=== PATIENT | female | born 1970 | race Caucasian/White ===

== ENCOUNTER 2017-10-01 13:01 | Inpatient (IN) | payer SELFPAY ==
[~2017-10-01] VITALS: Ht 165.1 cm; Wt 80.0 kg
[2017-10-01] VITALS (12 sets, daily range): BP systolic 88–189; BP diastolic 63–111; PULSE 111–148; RESP 14–28; TEMP 93.4–97.2; O2SAT 86–100
[~2017-10-01 13:01] MED LIST: SULF200S24 PO; ZOLO50TA PO; [UNRECOGNIZED DRUG - CODE] PO
[2017-10-01] MEDS ORDERED: NOREPINEPHRINE 4 MG/4 ML AMP ONE (13:06)
[2017-10-01] MEDS ORDERED: SODIUM CHLOR 0.9% 1000 ML INJ 1,000 ML IV SCH (13:12)
[2017-10-01] MEDS ORDERED: SODIUM CHLORIDE 0.9% FLUSH 10 ML FLUSH IV FLUSH PRN (13:15)
--- NOTE | 2017-10-01 13:15 | PD ---
HPI Chief Complaint: Code Blue Time Seen by Provider: 13:10 Travel History International Travel<30 days: No Contact w/Intl Traveler<30days: No History of Present Illness HPI Patient is a 47 year old female last seen normal at 0930 this morning. Apparently came home from the shift leader, had a beer and went to bed. Sissy awoke some time after that and found her unresponsive on the floor. patient has history of gastric bipass and apparently is a daily drinker. According to iselaoj had no complaints of CP/SOB/Abdominal pain/Head injury prior to code. Approximately 12 minutes of bistander CPR was initiated. Patient had ROSC after resucitation by EMS. Patient then re-coded and was given several rounds of epi, bicarb, narcan, calcium chloride. On arrival to ER she had palpable femoral pulse for EMS. While rolling from ambulance to room E60 she again lost pulses. Patient has been in PEA arrest, no VT/VF or asystole. PFSH Past Medical History Blood Disorders: Yes (FACTOR V) Cancer: No Cardiovascular Problems: No Diabetes: No Gastrointestinal Disorders: Yes GERD: Yes Glaucoma: No Hepatitis: No Hiatal Hernia: No Hypertension: No Immune Disorder: No Musculoskeletal: Yes Neurologic: No Respiratory: Yes ( SLEEP APNEA ) Thyroid Disease: No Past Surgical History Cardiac Surgery: No Ear Surgery: No Endocrine Surgery: No Eye Surgery: No Gynecologic Surgery: Yes (LAPAROSCOPY TUBAL LIGATION- ABLATION) Oral Surgery: No Pacemaker: No Thoracic Surgery: No Other Surgery: Yes Social History Alcohol Use: Yes (SOCIALLY) Tobacco Use: No Allergies-Medications (Allergen,Severity, Reaction): Coded Allergies: No Known Allergies (Verified Allergy, Unknown, 10/01/17) Reported Meds & Prescriptions Reported Meds & Active Scripts Active Active Prescriptions or Reported Medications Unobtainable Review of Systems ROS Limitations: Altered Mental Status Physical Exam Exam Limitations: Altered Mental Status Narrative GENERAL: WD/WN in cardiac arrest. BVM. SKIN: Cool and dry. HEAD: Atraumatic. Normocephalic. EYES: Fixed and dilated. No scleral icterus. No injection or drainage. ENT: No nasal bleeding or discharge. Mucous membranes pink and moist. NECK: Trachea midline. No JVD. CARDIOVASCULAR: PEA arrest. RESPIRATORY: Apneic except BVM. GASTROINTESTINAL: Abdomen soft, non-tender, nondistended. Hepatic and splenic margins not palpable. MUSCULOSKELETAL: Extremities without clubbing, cyanosis, or edema. No obvious deformities. NEUROLOGICAL: GCS 3 Data Data Last Documented VS Vital Signs Date Time Temp Pulse Resp B/P (MAP) Pulse Ox O2 Delivery O2 Flow Rate FiO2 10/01/17 14:45 117 18 100 Ventilator 100 10/01/17 13:04 118/76 (90) Orders Orders Norepinephrine Inj (Levophed Inj) (10/01/17 13:06) Ammonia (10/01/17 13:12) Complete Blood Count With Diff (10/01/17 13:12) Comprehensive Metabolic Panel (10/01/17 13:12) Creatine Kinase (Cpk) (10/01/17 13:12) Prothrombin Time / Inr (Pt) (10/01/17 13:12) Act Partial Throm Time (Ptt) (10/01/17 13:12) Troponin I (10/01/17 13:12) Thyroid Stimulating Hormone (10/01/17 13:12) Urinalysis - C+S If Indicated (10/01/17 13:12) Lactic Acid Sepsis Protocol (10/01/17 13:12) Blood Culture (10/01/17 13:12) Chest, Single Ap (10/01/17 13:12) Ct Brain W/O Iv Contrast(Rout) (10/01/17 13:12) Blood Glucose (10/01/17 13:12) Ecg Monitoring (10/01/17 13:12) Iv Access Insert/Monitor (10/01/17 13:12) Oximetry (10/01/17 13:12) Sodium Chloride 0.9% Flush (Ns Flush) (10/01/17 13:15) Sodium Chlor 0.9% 1000 Ml Inj (Ns 1000 M (10/01/17 13:12) Drug Screen, Random Urine (10/01/17 13:12) Alcohol (Ethanol) (10/01/17 13:12) Ct Cerv Spine W/O Contrast (10/01/17 ) Norepinephrine-Dextrose Drip (Levophed-D (10/01/17 13:30) Terbutaline Inj (Brethine Inj) (10/01/17 13:30) Arterial Blood Gas (Abg) (10/01/17 ) Norepinephrine-Dextrose Drip (Levophed-D (10/01/17 14:00) Ct Pulmonary Angiogram (10/01/17 ) Admit Order (Ed Use Only) (10/01/17 ) Labs Laboratory Tests Test 10/01/17 13:28 10/01/17 13:30 10/01/17 14:20 Blood Gas Puncture Site RT RADIAL Blood Gas Patient Temperature 98.6 Blood Gas HCO3 12 mmol/L Blood Gas Base Excess -18.8 mmol/L Blood Gas Oxygen Saturation 98 % Arterial Blood pH 6.87 Arterial Blood Partial Pressure CO2 70 mmHg Arterial Blood Partial Pressure O2 307 mmHG Arterial Blood Oxygen Content 19.2 Vol % Arterial Blood Carboxyhemoglobin 0.0 % Arterial Blood Methemoglobin 0.9 % Blood Gas Hemoglobin 13.5 G/DL Oxygen Delivery Device VENTILATOR Blood Gas Ventilator Setting Blood Gas Inspired Oxygen 100 % White Blood Count 20.2 TH/MM3 Red Blood Count 4.30 MIL/MM3 Hemoglobin 14.3 GM/DL Hematocrit 45.3 % Mean Corpuscular Volume 105.3 FL Mean Corpuscular Hemoglobin 33.3 PG Mean Corpuscular Hemoglobin Concent 31.6 % Red Cell Distribution Width 13.9 % Platelet Count 196 TH/MM3 Mean Platelet Volume 9.1 FL Neutrophils (%) (Auto) 44.7 % Lymphocytes (%) (Auto) 47.8 % Monocytes (%) (Auto) 5.5 % Eosinophils (%) (Auto) 1.2 % Basophils (%) (Auto) 0.8 % Neutrophils # (Auto) 9.0 TH/MM3 Lymphocytes # (Auto) 9.6 TH/MM3 Monocytes # (Auto) 1.1 TH/MM3 Eosinophils # (Auto) 0.3 TH/MM3 Basophils # (Auto) 0.2 TH/MM3 CBC Comment AUTO DIFF Differential Total Cells Counted 100 Neutrophils % (Manual) 31 % Band Neutrophils % 16 % Lymphocytes % 43 % Monocytes % 1 % Neutrophils # (Manual) 11.3 TH/MM3 Metamyelocytes 5 % Myelocytes 2 % Promyelocytes 2 % Differential Comment FINAL DIFF MANUAL Platelet Estimate NORMAL Platelet Morphology Comment NORMAL Prothrombin Time 10.7 SEC Prothromb Time International Ratio 1.1 RATIO Activated Partial Thromboplast Time 31.9 SEC Blood Urea Nitrogen 12 MG/DL Creatinine 1.55 MG/DL Random Glucose 287 MG/DL Total Protein 6.5 GM/DL Albumin 3.0 GM/DL Calcium Level 11.4 MG/DL Alkaline Phosphatase 101 U/L Aspartate Amino Transf (AST/SGOT) 1972 U/L Alanine Aminotransferase (ALT/SGPT) 1341 U/L Total Bilirubin 0.3 MG/DL Sodium Level 144 MEQ/L Potassium Level 4.9 MEQ/L Chloride Level 99 MEQ/L Carbon Dioxide Level 19.9 MEQ/L Anion Gap 25 MEQ/L Estimat Glomerular Filtration Rate 36 ML/MIN Lactic Acid Level 14.5 mmol/L Ammonia 259 MCMOL/L Total Creatine Kinase 174 U/L Troponin I 0.07 NG/ML Thyroid Stimulating Hormone 3rd Gen 22.900 uIU/ML Ethyl Alcohol Level 125 MG/DL Urine Color YELLOW Urine Turbidity CLOUDY Urine pH 6.0 Urine Specific [place] 1.006 Urine Protein 100 mg/dL Urine Glucose (UA) 150 mg/dL Urine Ketones NEG mg/dL Urine Occult Blood MOD Urine Nitrite NEG Urine Bilirubin NEG Urine Urobilinogen LESS THAN 2 mg/dL Urine Leukocyte Esterase NEG Urine RBC 7 /hpf Urine WBC 8 /hpf Urine Squamous Epithelial Cells <1 /hpf Urine Amorphous Sediment MANY Urine Bacteria FEW /hpf Urine Hyaline Casts 3 /lpf Urine Mucus FEW /lpf Microscopic Urinalysis Comment CATH-CULTURE IND Urine Opiates Screen POS Urine Barbiturates Screen NEG Urine Amphetamines Screen NEG Urine Benzodiazepines Screen NEG Urine Cocaine Screen NEG Urine Cannabinoids Screen NEG MDM Medical Decision Making Medical Screen Exam Complete: Yes Emergency Medical Condition: Yes Differential Diagnosis Cardiac arrest, AMI, PE, Head injury, Electrolyte abnormality, Dehydration, Hypovolemia, pneumothorax, Narrative Course CPR started in ER and was given a round of epi by Right tib IO access. IV access obtained by nursing and fluids started. Patient had ROSC after 1 round of epi. Post code resucitation started. Patient intubated by me. OG showed no blood. IO removed. Levophed started. Patient becoming hypotensive again, HR in 80's, 1/2 amp epi given camilo-arrest, good response in BP up to 160 and HR up to 120. Levophed titrated. ABG showing Metabolic and Respiratory acidosis. Bicarb given, respiratory rate increased. Art line and femoral line started. Patient BP improving after bicarb. Cause of arrest yet unknown. No reported emesis/hematemsis visible on seen or history of. No reported history of trauma. CT PE ordered as well as CT head and Cerv spine. Electrolytes pending. WBC elevated. BC's drawn Will start vanc and zosyn. Last 24 hours Impressions Chest X-Ray 10/01/17 1312 Signed Impressions: CONCLUSION: Adequate placement of endotracheal tube. At 1600 report being called to ICU by nursing. Patient remains in critical condition, blood pressure is improving. Did not require second pressor. Cause of PEA arrest remains unknown. Labs show multiorgan failure. TSH elevated, lactic acid 14.5, AST 1972, ALT 1341. Ammonia 259. Electrolytes fairly unremarkable except calcium elevated. Troponon 0.07. Myxedema coma is posibility. But per fiance patient had no symptoms prior to code. Core temperature was low at 92 good support myxedema, could be from prolonged downtime. Critical Care Narrative Aggregate critical care time was 65 minutes. Time to perform other separately billable procedures was not included in the critical care time. My time did not include minutes spent treating any other patients simultaneously or on activities that did not directly contribute to the patient's treatment. The services I provided to this patient were to treat and/or prevent clinically significant deterioration that could result in: , disability, organ failure I provided critical care services requiring my management, as noted below: Chart data review, documentation time, medication orders and management, vital sign assessments/reviewing monitor data, ordering and reviewing lab tests, ordering and interpreting/reviewing x-rays and diagnostic studies, care of the patient and discussion of the patient with the admitting physicians. Procedures Procedure Narrative INTUBATION: The patient was put in optimal position for the procedure. Crush airway did not require premedication her R side. MAC 4 blade DL. the patient was intubated with a 7-5 cuffed endotracheal tube. Tube placement was confirmed by visualization of the tube and balloon passing through the cords, capnometry and subsequent chest x-ray. Breath sounds were equal and well aerated bilaterally postintubation. No breath sounds over stomach. Patient tolerated procedure well. CENTRAL VENOUS LINE: The site was prepped with chlorhexadine and sterilely draped. Maximum sterile barrier was used the deep vein was cannulated using normal Seldinger technique. A 7 [place] triple lumen central line was placed in the right femoral site and secured with simple interrupted suture. The site was sterilely dressed Biopatch and Tegaderm. The patient tolerated the procedure well. CENTRAL ARTERIAL LINE: The site was prepped with chlorhexidine and sterilely draped. It was infiltrated with 1% lidocaine plain. The deep vein was cannulated using normal Seldinger technique. A singe lumen 20guage arterial was placed in the right femoral site and secured with simple interrupted suture. The site was sterilely dressed. The patient tolerated the procedure well. Diagnosis Primary Impression: Cardiac arrest Admitting Information Admitting Physician Requests: Admit Scripts Unable to Obtain Active Prescriptions or Reported Meds Condition: Critical Morales Glez MD Oct 01, 2017 13:15
[2017-10-01] MEDS ORDERED: TERBUTALINE INJ 1 MG/ML AMP SQ PRN (13:30)
[2017-10-01] MEDS ORDERED: NOREPINEPHRINE-DEXTROSE DRIP 250 ML IV PRN (13:30)
--- NOTE | 2017-10-01 13:48 | RADRPT ---
EXAM DATE: 10/01/2017 1:33 PM EDT AGE/SEX: 47 years / Female INDICATIONS: Post intubation. CLINICAL DATA: This is the patient's initial encounter. Patient reports that signs and symptoms have been present for 1 day and indicates a pain score of Nonresponsive. MEDICAL/SURGICAL HISTORY: Non-responsive. Non-responsive. COMPARISON: No prior exams available for comparison. FINDINGS: A single AP view of the chest demonstrates the lungs to be symmetrically aerated without evidence of mass, infiltrate or effusion. Endotracheal tube 3 cm above the xiomara. Nasogastric tube with tip in s tomach The cardiomediastinal contours are unremarkable. Osseous structures are intact. CONCLUSION: Adequate placement of endotracheal tube. Electronically signed by: Jamil Matson MD 10/01/2017 1:46 PM EDT
[2017-10-01 14:15] LABS: BASOPHIL # 0.2 TH/MM3 (0-0.2); BASOPHIL % 0.8 % (0.0-2.0); EOSINOPHIL # 0.3 TH/MM3 (0-0.4); EOSINOPHIL % 1.2 % (0.0-4.0); HEMATOCRIT 45.3 % (35.0-46.0); HEMOGLOBIN 14.3 GM/DL (11.6-15.3); LYMPH % 47.8 % (9.0-44.0); LYMPHOCYTE # 9.6 TH/MM3 (1.0-4.8); MEAN CELL VOLUME 105.3 FL (80.0-100.0); MEAN CORPUSCULAR HEMOGLOBIN 33.3 PG (27.0-34.0); MEAN CORPUSCULAR HGB CONC 31.6 % (32.0-36.0); MEAN PLATELET VOLUME 9.1 FL (7.0-11.0); MONO % 5.5 % (0.0-8.0); MONOCYTE # 1.1 TH/MM3 (0-0.9); NEUT % 44.7 % (16.0-70.0); PLATELET COUNT 196 TH/MM3 (150-450); RED CELL DISTRIBUTION WIDTH 13.9 % (11.6-17.2); WHITE BLOOD COUNT 20.2 TH/MM3 (4.0-11.0)
[2017-10-01 14:28] LABS: INTERNATIONAL NORMALIZED RATIO 1.1 RATIO; PROTHROMBIN TIME - PATIENT 10.7 SEC (9.8-11.6)
[2017-10-01 14:46] LABS: BANDS 16 % (0-6); LYMPHOCYTES 43 % (9-44); METAMYELOCYTES 5 % (0-1); MONOCYTES 1 % (0-8); MYELOCYTES 2 % (0-0); NEUTROPHIL # MANUAL DIFF 11.3 TH/MM3 (1.8-7.7); POLYS (SEG NEUTROPHILS) 31 % (16-70); PROMYELOCYTES 2 % (0-0)
[2017-10-01] MEDS: NOREPINEPHRINE 4 MG/D5W 250 ML IV PRN ×2 (15:04→18:36)
[2017-10-01 15:11] LABS: LACTIC ACID SEPSIS PROTOCOL 14.5 mmol/L (0.4-2.0)
[2017-10-01] MEDS ORDERED: SODIUM BICARBONATE 8.4% INJ 150 MEQ in DEXTROSE 5% IN WATE 1000ML INJ 1,000 ML IV SCH ×2 (15:15)
[2017-10-01] MEDS ORDERED: VANCOMYCIN INJ 1,000 MG in SODIUM CHLOR 0.9% 250 ML INJ 250 ML IV ONE (15:15)
[2017-10-01] MEDS ORDERED: SODIUM CHLOR 0.9% 1000 ML INJ 1,000 ML IV ONE ×3 (15:15→19:15)
[2017-10-01] MEDS ORDERED: PIPERACIL-TAZO 4.5 GM PREMIX 100 ML IV ONE (15:15)
[2017-10-01] MEDS ORDERED: CHLORHEXIDINE GLUCONATE 2 % 1 PACK (2 CLOTHS) TOP PRN (15:15)
[2017-10-01] MEDS ORDERED: SODIUM BICARBONATE 8.4% INJ 50 MEQ/50 ML SYR IV PUSH ONE ×2 (15:15→16:45)
[2017-10-01] MEDS ORDERED: NURSING INFORMATION XX SCH (15:15)
[2017-10-01] MEDS ORDERED: Vancomycin Consult Pharmacy 1 EA OTHER SCH (15:30)
[2017-10-01 15:39] LABS: ALKALINE PHOSPHATASE 101 U/L (45-117); ALT (GPT) 1341 U/L (10-53); AST (GOT) 1972 U/L (15-37); BICARBONATE 19.9 MEQ/L (21.0-32.0); BLOOD UREA NITROGEN 12 MG/DL (7-18); CALCIUM 11.4 MG/DL (8.5-10.1); CHLORIDE 99 MEQ/L (98-107); CREATININE 1.55 MG/DL (0.50-1.00); GLOMERULAR FILTRATION RATE 36 ML/MIN (>89); GLUCOSE,RANDOM 287 MG/DL (74-106); SODIUM (NA) 144 MEQ/L (136-145); TOTAL BILIRUBIN ADULT 0.3 MG/DL (0.2-1.0); TOTAL PROTEIN 6.5 GM/DL (6.4-8.2); TROPONIN I 0.07 NG/ML (0.02-0.05)
--- NOTE | 2017-10-01 15:39 | HHI.HP ---
HPI Service Critical Care Medicine Primary Care Physician Unknown Admission Diagnosis Cardiac Arrest Diagnosis: Chief Complaint: Post cardiac arrest Travel History International Travel<30 Days: No (unable to obtain) Contact w/Intl Traveler <30 Da: No (unable to obtain) Traveled to Known Affected Are: No (unable to obtain) History of Present Illness 47-year-old lady with history of gastric bypass, per chart alcoholic, drinking daily, now brought in post cardiac arrest. History is limited and it is obtained from ED physician since there is no family present at bedside. Patient was found unresponsive on the floor by her fianc sometime after 9:30 this morning. EMS was called and patient underwent approximately 12 minutes of bystander CPR. On EMS arrival patient was in PEA. Patient had ROSC but she arrested another 2 times on route to the hospital. Per documentation she she was given Narcan, epinephrine 5, bicarb 1 and calcium chloride. On ED arrival patient had a pulse however she lost the pulse briefly after arrival. She underwent another round of CPR in ED for again PEA arrest for which he received 1 epinephrine. An emergent central line and arterial line was placed by ED physician and patient was given 1 L saline bolus, 1 bicarb, and she was started on norepinephrine infusion. Was emergently intubated and placed on mechanical ventilation. [facility] is now consulted for ICU admission. Of note, patient did not receive any sedation since ED arrival. Patient was seen immediately in ER, she is intubated, unresponsive. Norepinephrine is at 30 mcg/ min. Review of Systems ROS Limitations: Intubated, Unresponsive Past Family Social History Allergies: Coded Allergies: No Known Allergies (Verified Allergy, Unknown, 10/01/17) Past Medical History Unobtainable, due to patient's condition Past Surgical History Unobtainable due to patient's condition. Per report history of gastric bypass Reported Medications Reported Meds & Active Scripts Active Active Prescriptions or Reported Medications Unobtainable Active Ordered Medications Current Medications Medications (Trade) Dose Ordered Sig/Fausto Route Start Time Stop Time Status Last Admin (NS Flush) 2 ml UNSCH PRN IV FLUSH 10/01/17 13:15 (Brethine Inj) 1 mg UNSCH PRN SQ 10/01/17 13:30 Norepinephrine Bitartrate 250 ml @ 7.5 mls/hr TITRATE PRN IV 10/01/17 14:00 10/01/17 15:04 Vancomycin HCl 1000 mg/Sodium Chloride 250 ml @ 250 mls/hr ONCE ONCE IV 10/01/17 15:15 10/01/17 16:14 Piperacillin Sod/ Tazobactam Sod 100 ml @ 200 mls/hr ONCE ONCE IV 10/01/17 15:15 10/01/17 15:44 Sodium Bicarbonate 150 meq/Dextrose 1,150 ml @ 100 mls/hr [id number] IV 10/01/17 15:15 Sodium Chloride 1,000 ml @ 999 mls/hr BOLUS ONCE IV 10/01/17 15:15 10/01/17 16:15 10/01/17 15:24 (Protonix Inj) 40 mg DAILY IV PUSH 10/02/17 09:00 (Tears Naturale Opth Soln) 1 drop TID EACH EYE 10/01/17 18:00 (Duoneb Neb) 1 ampule Q6HR NEB INH 10/01/17 16:00 (Lovenox Inj) 40 mg Q24H SQ 10/02/17 18:00 ([facility] [place] [facility]) 1 [id number] XX 10/01/17 15:15 (Chlorhexidine 2% Cloth) 3 pack Taper DAILY@04 TOP 10/02/17 04:00 09/28/18 03:59 (Chlorhexidine 2% Cloth) 3 pack UNSCH PRN TOP 10/01/17 15:15 (Peridex 0.12% Liq) 15 ml BID@08,20 MT 10/01/17 20:00 Family History Unobtainable, patient is intubated Social History Unobtainable, patient is intubated. Per ED chart patient was drinking daily Physical Exam Vital Signs Vital Signs Date Time Temp Pulse Resp B/P (MAP) Pulse Ox O2 Delivery O2 Flow Rate FiO2 10/01/17 15:15 93.4 128 27 160/98 (118) 100 Ventilator 40 10/01/17 15:10 100 10/01/17 15:04 123 142/85 10/01/17 14:45 117 18 100 Ventilator 100 10/01/17 13:15 98 100 10/01/17 13:04 111 14 118/76 (90) 86 Physical Exam General: Middle-aged lady, obese, unresponsive, intubated, ill-appearing HEENT: Pupils equal, dilated, not reactive, sclerae anicteric, neck supple, no nuchal rigidity, neck veins not distended, no carotid bruit, orally intubated, dried gastric content around the mouth CV: Regular S1, S2, no murmurs Chest: Coarse breath sounds b/l, good air entry, no wheezes Abdomen: Soft, non-tender, non-distended, BS present, no hepatomegaly, no splenomegaly Skin: No rashes, no cyanosis Extremities: Tepid, no edema, + peripheral pulses, no clubbing, right femoral central and arterial lines Neuro: Intubated, on no sedation, pupils dilated and not reactive, no corneal, no cough, no gag, does not over breathe the ventilator, does not withdraw to painful stimuli Laboratory Laboratory Tests Test 10/01/17 13:28 10/01/17 13:30 10/01/17 14:20 Blood Gas Puncture Site RT RADIAL Blood Gas Patient Temperature 98.6 Blood Gas HCO3 12 Blood Gas Base Excess -18.8 Blood Gas Oxygen Saturation 98 Arterial Blood pH 6.87 Arterial Blood Partial Pressure CO2 70 Arterial Blood Partial Pressure O2 307 Arterial Blood Oxygen Content 19.2 Arterial Blood Carboxyhemoglobin 0.0 Arterial Blood Methemoglobin 0.9 Blood Gas Hemoglobin 13.5 Oxygen Delivery Device VENTILATOR Blood Gas Ventilator Setting Blood Gas Inspired Oxygen 100 White Blood Count 20.2 Red Blood Count 4.30 Hemoglobin 14.3 Hematocrit 45.3 Mean Corpuscular Volume 105.3 Mean Corpuscular Hemoglobin 33.3 Mean Corpuscular Hemoglobin Concent 31.6 Red Cell Distribution Width 13.9 Platelet Count 196 Mean Platelet Volume 9.1 Neutrophils (%) (Auto) 44.7 Lymphocytes (%) (Auto) 47.8 Monocytes (%) (Auto) 5.5 Eosinophils (%) (Auto) 1.2 Basophils (%) (Auto) 0.8 Neutrophils # (Auto) 9.0 Lymphocytes # (Auto) 9.6 Monocytes # (Auto) 1.1 Eosinophils # (Auto) 0.3 Basophils # (Auto) 0.2 CBC Comment AUTO DIFF Differential Total Cells Counted 100 Neutrophils % (Manual) 31 Band Neutrophils % 16 Lymphocytes % 43 Monocytes % 1 Neutrophils # (Manual) 11.3 Metamyelocytes 5 Myelocytes 2 Promyelocytes 2 Differential Comment FINAL DIFF MANUAL Platelet Estimate NORMAL Platelet Morphology Comment NORMAL Prothrombin Time 10.7 Prothromb Time International Ratio 1.1 Activated Partial Thromboplast Time 31.9 Lactic Acid Level 14.5 Ammonia 259 Date/Time Source Procedure Growth Status 10/01/17 13:30 Blood Peripheral Aerobic Blood Culture Pending Received 10/01/17 13:30 Blood Peripheral Anaerobic Blood Culture Pending Received Result Diagram: 10/01/17 1330 Imaging Last Impressions Chest X-Ray 10/01/17 1312 Signed Impressions: CONCLUSION: Adequate placement of endotracheal tube. Caprini VTE Risk Assessment Caprini VTE Risk Assessment: No/Low Risk (score <= 1) Caprini Risk Assessment Model Point Value = 1 Point Value = 2 Point Value = 3 Point Value = 5 Age 41-60 Minor surgery BMI > 25 kg/m2 Swollen legs Varicose veins or History of unexplained or recurrent spontaneous Oral contraceptives or hormone replacement Sepsis (< 1 month) Serious lung disease, including pneumonia (< 1 month) Abnormal pulmonary function Acute myocardial infarction Congestive heart failure (< 1 month) History of inflammatory bowel disease Medical patient at bed rest Age 61-74 Arthroscopic surgery Major open surgery (> 45 min) Laparoscopic surgery (> 45 min) Malignancy Confined to bed (> 72 hours) Immobilizing plaster cast Central venous access Age >= 75 History of VTE Family history of VTE Factor V Leiden Prothrombin [id number] Lupus anticoagulant Anticardiolipin antibodies Elevated serum homocysteine Heparin-induced thrombocytopenia Other congenital or acquired thrombophilia Stroke (< 1 month) Elective arthroplasty Hip, pelvis, or leg fracture Acute spinal cord injury (< 1 month) Prophylaxis Regimen Total Risk Factor Score Risk Level Prophylaxis Regimen 0-1 Low Early ambulation 2 Moderate Order ONE of the following: *Sequential Compression Device (SCD) *Heparin 5000 units SQ BID 3-4 Higher Order ONE of the following medications: *Heparin 5000 units SQ TID *Enoxaparin/Lovenox 40 mg SQ daily (WT < 150 kg, CrCl > 30 mL/min) *Enoxaparin/Lovenox 30 mg SQ daily (WT < 150 kg, CrCl > 10-29 mL/min) *Enoxaparin/Lovenox 30 mg SQ BID (WT < 150 kg, CrCl > 30 mL/min) AND/OR *Sequential Compression Device (SCD) 5 or more Highest Order ONE of the following medications: *Heparin 5000 units SQ TID (Preferred with Epidurals) *Enoxaparin/Lovenox 40 mg SQ daily (WT < 150 kg, CrCl > 30 mL/min) *Enoxaparin/Lovenox 30 mg SQ daily (WT < 150 kg, CrCl > 10-29 mL/min) *Enoxaparin/Lovenox 30 mg SQ BID (WT < 150 kg, CrCl > 30 mL/min) AND *Sequential Compression Device (SCD) Assessment and Plan Assessment and Plan 1. Cardiac arrest 4 -PEA, etiology is unclear so far 2. Acute hypoxic and hypercapnic respiratory failure 3. Acute encephalopathy with concern for brain anoxia 4. Severe metabolic and respiratory acidosis 5. Circulatory shock 6. Likely aspiration pneumonia 7. Severe lactic acidosis 8. Liver failure 9. IDA 10. Elevated TSH 11. Hyperammonemia 1. Admit to ICU 2. Stat CT head. If no evidence of bleeding we will initiate hypothermia protocol 3. Continue mechanical ventilation with PRVC, 500/24/40%, PEEP of 5. Patient is synchronized with the vent, no auto PEEP, PIP is 24 4. Repeat ABG at 4 PM 5. Another dose of slow bicarb push followed by bicarb drip at 100 mL's per hour 6. Echocardiogram and serial cardiac enzymes 7. Continue norepinephrine to keep map above 65 8. Send blood cultures, sputum culture, urine culture 9. Start empiric antibiotic with vancomycin and Zosyn 10. GI prophylaxis with pantoprazole 11. DVT prophylaxis with Lovenox 12. Repeat ammonia 13. Send lactic acid 14. Urine drug screen is pending. Send acetaminophen, salicylate and ethanol level 15. Nephrology consult for CRRT 16. Check Free T3 and T4 I spent 54 minutes of critical care time, excluding procedures, managing life- threatening acidosis, pressors, ventilator, fluids, antibiotics, reviewing data and ordering investigations, discussing with nursing staff. No family present at bedside. Addendum: Patient underwent CT head. I discussed with the radiologist the scan and it is consistent with diffuse anoxic injury therefore we will not initiate hypothermia protocol. Emergent Vas-Cath was placed and patient will undergo CRRT for refractory acidosis. Dr. Alatorre from nephrology was called. Patient is being given additional fluid bolus and bicarb. Repeat labs are pending including lactic acid, troponin, ammonia, free T3 and free T4. Stat echo has been ordered. Repeat ABG at 7 PM. Nighttime concrete mason will follow. Given the neurological exam and CT findings prognosis is extremely poor. No family was present at bedside. Skyler Anders MD Oct 01, 2017 15:39
[2017-10-01 15:41] LABS: AMORPHOUS SEDIMENT, URINE MANY; BACTERIA, URINE FEW /hpf; BILIRUBIN, URINE NEG (NEG); BLOOD, URINE MOD (NEG); GLUCOSE,URINE 150 mg/dL (NEG); HYALINE CAST, URINE 3 /lpf (RARE); KETONE, URINE NEG (NEG); MUCUS URINE FEW /lpf (OCC); NITRITE,URINE NEG (NEG); SQUAMOUS EPITHELIAL CELL URINE <1 /hpf (0-5); URINE COLOR YELLOW (YELLW/STRAW); URINE LEUKOCYTE ESTERASE NEG (NEG)
[2017-10-01] MEDS ORDERED: VANCOMYCIN INJ 1,500 MG in SODIUM CHLORID 0.9% 500 ML INJ 500 ML IV ONE (16:00)
[2017-10-01] MEDS: RESP: ALBUTEROL 2.5 MG/IPRATROPIUM 0.5 MG NEB (SCH) INH ×2 (16:25→20:18)
[2017-10-01] MEDS ORDERED: SODIUM BICARBONATE 8.4% INJ 150 ML ONE (17:30)
[2017-10-01 17:39] LABS: FREE T3 3.7 PG/ML (2.18-3.98); FREE T4 0.71 NG/DL (0.76-1.46)
[2017-10-01] MEDS ORDERED: IODIXANOL 320 MG/ML 10 ML VIAL (for Rad CT) IVCONTRAST ONE (17:40)
--- NOTE | 2017-10-01 17:57 | RADRPT ---
EXAM DATE: 10/01/2017 5:23 PM EDT AGE/SEX: 47 years / Female INDICATIONS: Altered mental status. CLINICAL DATA: This is the patient's initial encounter. Patient reports that signs and symptoms have been present for 1 day and indicates a pain score of Nonresponsive. MEDICAL/SURGICAL HISTORY: Non-responsive. Hysterectomy. Gastric bypass. mastectomy RADIATION DOSE: 56.35 CTDI (mGy) ; Patient motion COMPARISON: No prior exams available for comparison. TECHNIQUE: CT of the head without contrast. Using automated exposure control and adjustment of the mA and/or kV according to patient size, radiation dose was kept as low as reasonably achievable to ob tain optimal diagnostic quality images. DICOM format image data is available electronically for revi ew and comparison. FINDINGS: There is motion artifact but there is diffuse loss of klein-white differentiation and diffuse decrease d attenuation with swelling and sulcal effacement. Findings are most characteristic of diffuse anoxic injury. No acute bony abnormalities. CONCLUSION: 1. CT findings most characteristic of diffuse anoxic injury. Findings discussed with referring physi [place]. Exam is degraded by motion artifact. Electronically signed by: Lonny Wheeler MD 10/01/2017 5:56 PM EDT
--- NOTE | 2017-10-01 17:59 | RADRPT ---
EXAM DATE: 10/01/2017 5:43 PM EDT AGE/SEX: 47 years / Female INDICATIONS: Respiratory distress. CLINICAL DATA: This is the patient's initial encounter. Patient reports that signs and symptoms have been present for 1 day and indicates a pain score of 5/10. MEDICAL/SURGICAL HISTORY: None. Gastric bypass. Hysterectomy. Mastectomy, bilateral. Tubal ligat ion RADIATION DOSE: 10.68 CTDI (mGy) COMPARISON: No prior exams available for comparison. TECHNIQUE: Volumetric scanning was performed using a multi-row detector CT scanner during bolus infu leticia of 49 ml Visipaque 320 (iodixanol) nonionic water-soluble contrast as a single exam dose. The d yobani was post processed with a variety of visualization algorithms including full volume maximum inten sity projection and sliding thin slab reformation. Using automated exposure control and adjustment o f the mA and/or kV according to patient size, radiation dose was kept as low as reasonably achievable to obtain optimal diagnostic quality images. DICOM format image data is available electronically fo r review and comparison. FINDINGS: No filling defects to suggest pulmonary embolus. Endotracheal tube in good position. Nasogastric tube enters stomach. There is some scattered groundglass opacity in the lungs which could represent a mild pneumonitis or aspiration. No pleural effusion. Trace pericardial fluid. No acute findings in the upper abdomen. Previous gastric bypass surgery. CONCLUSION: 1. Negative for pulmonary embolus. 2. Small pericardial effusion. Endotracheal tube and nasogastric tube in good position. Scattered mi ld groundglass opacity in the lungs. Electronically signed by: Lonny Wheeler MD 10/01/2017 5:58 PM EDT
[2017-10-01] MEDS: ARTIFICIAL TEARS OPTH SOLN 15 ML BTL EACH EYE SCH (18:00)
--- NOTE | 2017-10-01 18:23 | RADRPT ---
EXAM DATE: 10/01/2017 5:46 PM EDT AGE/SEX: 47 years / Female INDICATIONS: Found unresponsive. CLINICAL DATA: This is the patient's initial encounter. Patient reports that signs and symptoms have been present for 1 day and indicates a pain score of Nonresponsive. MEDICAL/SURGICAL HISTORY: None. Hysterectomy. Mastectomy, bilateral. Gastric bypass. Tubal l igation RADIATION DOSE: 36.24 CTDI (mGy) COMPARISON: No prior exams available for comparison. TECHNIQUE: Contiguous axial images were obtained using helical multirow detector technique. The vol umetric data was post-processed with multiplanar reconstruction in oblique axial, sagittal, and coron al planes. Using automated exposure control and adjustment of the mA and/or kV according to patient s ize, radiation dose was kept as low as reasonably achievable to obtain optimal diagnostic quality florin ges. DICOM format image data is available electronically for review and comparison. FINDINGS: No acute fracture or spondylolisthesis. No prevertebral soft tissue swelling. No bony canal stenosis. Patient is intubated and NG tube is present. Mild scoliosis. CONCLUSION: 1. No acute findings. No canal stenosis. Electronically signed by: Lonny Wheeler MD 10/01/2017 6:22 PM EDT
[2017-10-01] MEDS ORDERED: SODIUM CHLORID 0.9% 500 ML INJ 500 ML IV ONE (18:30)
--- NOTE | 2017-10-01 18:32 | PD.PROCEDR ---
Central Line Procedure REASON FOR PROCEDURE Hemodialysis access PROCEDURE PERFORMED Vas-cath placement: Left internal jugular vein CONSENT Informed consent for procedure was not obtained since the procedure was emergent and there was no family present at bedside. A timeout was called for patient safety. ANESTHESIA Local injection of 1% Lidocaine DESCRIPTION OF THE PROCEDURE The patient was placed in supine position. The area was exposed and cleansed with ChloraPrep, times two. Large sterile drape was used to cover the patient, with the site exposed, under sterile conditions including cap, face mask, sterile gown, and sterile gloves. On single attempt, the introducer needle was inserted with negative pressure in syringe and venous flash was obtained. The guide wire was then advanced without any restriction and the needle was removed. The dilator was used without any complications. Using Seldinger technique the hemodialysis catheter was advanced over the guide wire to a depth of 18 centimeters. The guide wire was removed. All ports were aspirated with dark venous blood return and flushed easily with sterile saline. All ports were capped. Antibiotic disc was placed around central line at puncture site. The central line was secured to the skin with two interrupted 2.0 silk sutures. The area was bandaged with sterile see-through central line bandage. RADIOLOGICAL DATA Ultrasound guidance was used to locate the vein. Doppler/color flow was used to confirm venous flow. Chest x-ray was ordered. COMPLICATIONS: No apparent complications. ESTIMATED BLOOD LOSS: Less than 1 cc. Skyler Anders MD Oct 01, 2017 18:32
--- NOTE | 2017-10-01 18:53 | RADRPT ---
EXAM DATE: 10/01/2017 6:49 PM EDT AGE/SEX: 47 years / Female INDICATIONS: Post central line placement. CLINICAL DATA: This is the patient's subsequent encounter. Patient reports that signs and symptoms h ave been present for 1 day and indicates a pain score of Nonresponsive. MEDICAL/SURGICAL HISTORY: None. . Gastric bypass. Hysterectomy. Mastectomy, bilateral. Tubal li gation COMPARISON: C, CHEST SINGLE AP, 10/01/2017. . FINDINGS: Endotracheal tube in good position. NG coiled in stomach. Left IJ line in superior vena cava. Minimal basilar atelectasis. No effusion or pneumothorax. CONCLUSION: Support apparatus in good position. No pneumothorax. Electronically signed by: Lonny Wheeler MD 10/01/2017 6:52 PM EDT
[2017-10-01] MEDS: VASOPRESSIN INJ 40 UNITS in DEXTROSE 5% IN WATER 100ML INJ 98 ML IV SCH ×2 (19:48)
--- NOTE | 2017-10-01 20:00 | ECHRPT ---
Indication: cardiac arrest CONCLUSIONS The left ventricular systolic function is normal with an estimated ejection fraction in the range of 55-60%. Normal left ventricular size. Wall thickness is normal. No regional wall motion abnormalities are present. There is trace tricuspid valve regurgitation. The estimated pulmonary arterial pressure is 23.1 mmHg. The right ventricle is mildly dilated. BP: / HR: Rhythm: Sinus MEASUREMENTS (Male / Female) Normal Values Technical Quality:Technically difficult study 2D ECHO LV Diastolic Diameter PLAX 3.8 cm 4.2 - 5.9 / 3.9 - 5.3 cm LV Systolic Diameter PLAX 2.9 cm IVS Diastolic Thickness 1.0 cm 0.6 - 1.0 / 0.6 - 0.9 cm LVPW Diastolic Thickness 1.0 cm 0.6 - 1.0 / 0.6 - 0.9 cm LV Relative Wall Thickness 0.5 RV Internal Dim ED PLAX 2.5 cm LVOT Diameter 1.9 cm LA Systolic Diameter LX 2.7 cm 3.0 - 4.0 / 2.7 - 3.8 cm LV Ejection Fraction MOD 4C 56.6 % LV Ejection Fraction 4C AL 57.8 % M-MODE Aortic Root Diameter MM 2.7 cm LA Systolic Diameter MM 2.6 cm LA Ao Ratio MM 1.0 AV Cusp Separation MM 1.5 cm DOPPLER AV Peak Velocity 93.7 cm/s AV Peak Gradient 3.5 mmHg LVOT Peak Velocity 84.9 cm/s LVOT Peak Gradient 2.9 mmHg AV Area Cont Eq pk 2.6 cm MV Area PHT 7.1 cm LV E' Lateral Velocity 9.6 cm/s LV E' Septal Velocity 19.6 cm/s TR Peak Velocity 181.0 cm/s TR Peak Gradient 13.1 mmHg Right Atrial Pressure 10.0 mmHg Pulmonary Artery Systolic Pressu 23.1 mmHg Right Ventricular Systolic Press 23.1 mmHg PV Peak Velocity 73.3 cm/s PV Peak Gradient 2.1 mmHg FINDINGS LEFT VENTRICLE The left ventricular systolic function is normal with an estimated ejection fraction in the range of 55-60%. Normal left ventricular size. Wall thickness is normal. No regional wall motion abnormalities are present. RIGHT VENTRICLE The right ventricle is mildly dilated. LEFT ATRIUM The left atrial size is normal. RIGHT ATRIUM The right atrial size is normal. ATRIAL SEPTUM Normal atrial septal thickness without atrial level shunting by limited color doppler interrogation. AORTA The aortic root and proximal ascending aorta are normal in size on limited imaging. MITRAL VALVE Structurally normal mitral valve. No mitral valve stenosis or regurgitation. AORTIC VALVE Trileaflet aortic valve. No aortic valve stenosis or regurgitation. TRICUSPID VALVE Structurally normal tricuspid valve. There is trace tricuspid valve regurgitation. The estimated pulmonary arterial pressure is 23.1 mmHg. PULMONARY VALVE No pulmonary valve regurgitation or stenosis. VESSELS The inferior vena cava is normal in size. PERICARDIUM No pericardial effusion. Miguelito Bernal MD (Electronically Signed) Final Date:01 October 2017 20:00
[2017-10-01 21:02] LABS: BICARBONATE 17.4 MEQ/L (21.0-32.0); CALCIUM 7.2 MG/DL (8.5-10.1); CREATININE 1.5 MG/DL (0.50-1.00)
[2017-10-01 21:20] LABS: CALCIUM-PROTEIN CORRECTED 8.3 MG/DL (8.5-10.1)
[2017-10-01] MEDS: NOREPINEPHRINE-DEXTROSE DRIP 250 ML IV PRN (22:17)
[2017-10-01] MEDS: SODIUM BICARBONATE 8.4% INJ 100 MEQ in DEXTROSE 5% IN WATE 1000ML INJ 1,000 ML IV SCH ×2 (22:35)
[2017-10-01] MEDS: CHLORHEXIDINE 0.12% (ORAL KIT) 15 ML CUP MT SCH (22:35)
[2017-10-02] VITALS (18 sets, daily range): BP systolic 93–130; BP diastolic 52–81; PULSE 113–122; RESP 12–24; O2SAT 96–100
[2017-10-02] MEDS ORDERED: HEPARIN-D5W 25,000 U/250 ML 250 ML IV PRN
[2017-10-02] MEDS ORDERED: HEPARIN SODIUM - IV 10,000 UNITS/10 ML VIAL IV PUSH ONE
[2017-10-02] MEDS: PIPERACIL-TAZO 3.375 GM PREMIX 50 ML IV SCH ×3 (00:13→16:24)
[2017-10-02 00:29] LABS: HEMATOCRIT 37.1 % (35.0-46.0); HEMOGLOBIN 12.8 GM/DL (11.6-15.3); MEAN CELL VOLUME 94.6 FL (80.0-100.0); MEAN CORPUSCULAR HEMOGLOBIN 32.5 PG (27.0-34.0); MEAN CORPUSCULAR HGB CONC 34.4 % (32.0-36.0); MEAN PLATELET VOLUME 8.6 FL (7.0-11.0); PLATELET COUNT 146 TH/MM3 (150-450); RED BLOOD COUNT 3.92 MIL/MM3 (4.00-5.30); RED CELL DISTRIBUTION WIDTH 12.6 % (11.6-17.2); WHITE BLOOD COUNT 24.4 TH/MM3 (4.0-11.0)
[2017-10-02 00:42] LABS: INTERNATIONAL NORMALIZED RATIO 1.9 RATIO; PROTHROMBIN TIME - PATIENT 19.6 SEC (9.8-11.6)
[2017-10-02] MEDS: RESP: ALBUTEROL 2.5 MG/IPRATROPIUM 0.5 MG NEB (SCH) INH ×4 (02:50→20:02)
[2017-10-02] MEDS: CHLORHEXIDINE GLUCONATE 2 % 1 PACK (2 CLOTHS) TOP SCH (03:22)
--- NOTE | 2017-10-02 04:03 | RADRPT ---
EXAM DATE: 10/02/2017 3:34 AM EDT AGE/SEX: 47 years / Female INDICATIONS: Shortness of breath, possible pulmonary disease. CLINICAL DATA: This is the patient's subsequent encounter. Patient reports that signs and symptoms h ave been present for 2 days and indicates a pain score of Nonresponsive. MEDICAL/SURGICAL HISTORY: None. Gastric bypass. Mastectomy, bilateral. Hyste[place]. [place] [facility] [place] . FINDINGS: A single AP semierect view of the chest was obtained. Endotracheal tube remains in place with the tip 2 cm above the xiomara. Nasogastric tube is again seen coursing through the esophagus into the stomac h. The left internal jugular central venous line remains in place. Mild hazy opacity remains at the l sebas bases. The heart size is at the upper limits of normal. Left costophrenic angle may be mildly beto nted. CONCLUSION: No significant change. Electronically signed by: Jus Grossman MD 10/02/2017 4:01 AM EDT
[2017-10-02 04:45] LABS: HEMATOCRIT 37.5 % (35.0-46.0); HEMOGLOBIN 12.7 GM/DL (11.6-15.3); MEAN CELL VOLUME 95.4 FL (80.0-100.0); MEAN CORPUSCULAR HEMOGLOBIN 32.3 PG (27.0-34.0); MEAN CORPUSCULAR HGB CONC 33.9 % (32.0-36.0); MEAN PLATELET VOLUME 8.5 FL (7.0-11.0); PLATELET COUNT 141 TH/MM3 (150-450); RED BLOOD COUNT 3.93 MIL/MM3 (4.00-5.30); RED CELL DISTRIBUTION WIDTH 12.8 % (11.6-17.2); WHITE BLOOD COUNT 21.7 TH/MM3 (4.0-11.0)
[2017-10-02 05:16] LABS: ALBUMIN 2.7 GM/DL (3.4-5.0); BICARBONATE 22.2 MEQ/L (21.0-32.0); CALCIUM 7.2 MG/DL (8.5-10.1); CALCIUM-PROTEIN CORRECTED 8.2 MG/DL (8.5-10.1); CREATININE 1.6 MG/DL (0.50-1.00); MAGNESIUM 1.5 MG/DL (1.5-2.5); PHOSPHORUS 0.3 MG/DL (2.5-4.9); TOTAL BILIRUBIN ADULT 0.5 MG/DL (0.2-1.0); TOTAL PROTEIN 5.3 GM/DL (6.4-8.2)
[2017-10-02 05:42] LABS: BANDS 11 % (0-6); LYMPHOCYTES 1 % (9-44); NEUTROPHIL # MANUAL DIFF 21.5 TH/MM3 (1.8-7.7); POLYS (SEG NEUTROPHILS) 88 % (16-70)
[2017-10-02] MEDS ORDERED: HEPARIN SODIUM - IV 10,000 UNITS/10 ML VIAL IV PUSH PRN ×2 (06:00)
[2017-10-02 06:10] LABS: TROPONIN I 2.36 NG/ML (0.02-0.05)
[2017-10-02] MEDS: SODIUM BICARBONATE 8.4% INJ 100 MEQ in DEXTROSE 5% IN WATE 1000ML INJ 1,000 ML IV SCH ×2 (06:22)
[2017-10-02] MEDS: NOREPINEPHRINE-DEXTROSE DRIP 250 ML IV PRN ×3 (06:22→14:31)
[2017-10-02] MEDS ORDERED: LACTATED RINGER'S 1000 ML INJ 1,000 ML IV SCH (06:45)
[2017-10-02] MEDS ORDERED: MAGNESIUM SULFATE 1 GM PREMIX 100 ML IV ONE (07:00)
[2017-10-02] MEDS: PANTOPRAZOLE SODIUM 40 MG VIAL IV PUSH SCH (07:52)
[2017-10-02] MEDS: CHLORHEXIDINE 0.12% (ORAL KIT) 15 ML CUP MT SCH ×2 (07:53→20:00)
[2017-10-02] MEDS: ARTIFICIAL TEARS OPTH SOLN 15 ML BTL EACH EYE SCH ×3 (07:53→18:00)
[2017-10-02] MEDS ORDERED: CALCIUM GLUCONATE INJ 1 GM in DEXTROSE 5% IN WATER 100ML INJ 100 ML IV ONE ×2 (08:00)
[2017-10-02] MEDS ORDERED: POTASSIUM PHOSPHATE INJ 30 MMOL in SODIUM CHLOR 0.9% 250 ML INJ 250 ML IV ONE ×2 (08:00→18:00)
--- NOTE | 2017-10-02 08:22 | MB ---
cc: Nick Alatorre MD DATE: 10/01/2017 REASON FOR CONSULTATION: Acute renal failure management with acidosis. HISTORY OF PRESENT ILLNESS: This is a 47-year-old lady with a history of gastric bypass and apparent history of alcohol use. The patient was brought in to the ER after a cardiac arrest. Apparently, the patient was found unresponsive at home by her fiance around 9:30 this morning. She underwent 12 minutes of resuscitation by bystander CPR, apparently had PEA arrest and with EMS was coded approximately 3 times prior to her admission here. The patient had initial significant acidosis with a bicarbonate level of 12 on her initial ABGs. She was resuscitated and intubated and now continues on mechanical ventilation on 40 percent FiO2. She had a total of 4 cardiac arrests with PEA, and it is unclear what the etiology was; however, she did have positive opiates on a drug screen otherwise. CT of the brain was done with diffuse anoxic injury. The patient was started on a bicarbonate drip at 100 mL per hour and started on multiple pressors. At this time, the patient is intubated and sedated. She actually has started to develop good urine output with approximately 300 mL of urine output in her Yancey catheter at this time. She remains on pressor support. A cardiac echo is being done as well at this point for further evaluation. The patient was also started on empiric antibiotics with vancomycin and Zosyn. There was a concern for initial acidosis and the patient had a vascath placed for possible CRRT. Nephrology was consulted for further evaluation. REVIEW OF SYSTEMS: Unobtainable as the patient is intubated and sedated. PAST MEDICAL HISTORY: Unknown, other than history of gastric bypass and a history of alcohol abuse. PAST SURGICAL HISTORY: Includes gastric bypass. MEDICATIONS AT HOME: Unknown. FAMILY HISTORY: The patient lives with tasha. Unknown if any other relevant medical history. SOCIAL HISTORY: The patient has apparent history of alcohol use, unclear if any drug use; however, positive opiate screen. PHYSICAL EXAMINATION: GENERAL: At time of my evaluation, patient intubated, unresponsive. NECK: Soft, supple. CARDIAC: Regular rate and rhythm. PULMONARY: Clear to auscultation. Decreased breath sounds at bases. ABDOMEN: Soft, nontender, and nondistended. EXTREMITIES: No edema. LABORATORY FINDINGS: White count 20.2, hemoglobin 14.3, hematocrit 45.3 with platelet count of 196. Blood gas showed with pH of 7.4, pCO2 of 27, pO2 of 100 with bicarbonate of 18. INR 1.1. Lactic acid of 13.4. Sodium 144, potassium 4.9, chloride 99, bicarbonate 19.9, BUN 12, creatinine 1.55, glucose of 287, AST of 1972, ALT of 1341. Ammonia level of 259. Troponin 0.07. TSH of 22. Toxicology: Positive opiates. ASSESSMENT AND PLAN: Acidosis in the setting of cardiac arrest. At this time, the patient is intubated and sedated. It is unclear what the etiology for her cardiac arrest and PEA arrest was. She does have positive opiates on her toxicology screen. The family denies any recent drug use or exposure to anyone near any drugs otherwise. Continue to follow this with the ICU team. Regarding her renal function, the patient has a creatinine of 1.5 and she is making good urine at this time. She does have significant lactic acidosis with a lactic acid level of 13.4, which is slightly decreased from a previous level of 14.5. Her serum bicarbonate level was 19.9 in labs at 1:00 p.m. this afternoon. I am going to repeat stat labs now and further assess. Given that she is making urine and her bicarbonate levels have improved with the ABG blood gas bicarbonate of 18, we will hold off on any CRRT at this point. She continues on pressor support at this time and she continues on a bicarbonate drip, agree with sodium bicarbonate as ordered IV and continue to monitor. Should there be any worsening in her acidosis or potassium levels, may consider for [employer] initiation. However, at this point, we will continue to monitor the patient as she further stabilizes post-intubation and with initiation of IV fluids and pressors. Continue to followup etiology for underlying arrest with the primary team and continue all supportive care. MD BRANDY Ferrell/BASSEM , 08:27 PM , 08:19 AM BHAVIK
--- NOTE | 2017-10-02 08:40 | HHI.CCPN ---
Subjective Remarks/Hospital Course 47-year-old lady with history of gastric bypass, per chart alcoholic, drinking daily, now brought in post cardiac arrest. History is limited and it is obtained from ED physician since there is no family present at bedside. Patient was found unresponsive on the floor by her fianc sometime after 9:30 this morning. EMS was called and patient underwent approximately 12 minutes of bystander CPR. On EMS arrival patient was in PEA. Patient had ROSC but she arrested another 2 times on route to the hospital. Per documentation she she was given Narcan, epinephrine 5, bicarb 1 and calcium chloride. On ED arrival patient had a pulse however she lost the pulse briefly after arrival. She underwent another round of CPR in ED for again PEA arrest for which he received 1 epinephrine. An emergent central line and arterial line was placed by ED physician and patient was given 1 L saline bolus, 1 bicarb, and she was started on norepinephrine infusion. Was emergently intubated and placed on mechanical ventilation. [facility] is now consulted for ICU admission. Of note, patient did not receive any sedation since ED arrival. Patient was seen immediately in ER, she is intubated, unresponsive. Norepinephrine is at 30 mcg/ min. 10/03: Patient remains critically ill, on pressors, intubated, off sedation. Urine output significantly improved last evening, not requiring CRRT. She is currently on norepinephrine at 9. Acidosis is improved, lactic acid is trending down. Patient remains completely off sedation, unresponsive. Objective Vital Signs Date Time Temp Pulse Resp B/P (MAP) Pulse Ox O2 Delivery O2 Flow Rate FiO2 10/02/17 08:23 97 30 10/02/17 07:00 118 116/67 10/02/17 04:00 98.6 20 10/01/17 17:59 Ventilator Intake and Output 10/02/17 10/02/17 10/03/17 08:00 16:00 00:00 Intake Total 1633 ml 50 ml Output Total 2700 ml Balance -1067 ml 50 ml Result Diagram: 10/02/17 0417 10/02/17 0417 Other Results Microbiology Date/Time Source Procedure Growth Status 10/01/17 13:30 Blood Peripheral Aerobic Blood Culture Pending Received 10/01/17 13:30 Blood Peripheral Anaerobic Blood Culture Pending Received 10/01/17 13:25 Blood Peripheral Aerobic Blood Culture Pending Received 10/01/17 13:25 Blood Peripheral Anaerobic Blood Culture Pending Received 10/01/17 16:45 Sputum Endotracheal Gram Stain - Final Resulted 10/01/17 16:45 Sputum Endotracheal Sputum Culture Pending Resulted 10/01/17 14:20 Urine Catheterized Urine Urine Culture Pending Received Laboratory Tests Test 10/01/17 13:28 10/01/17 16:18 10/01/17 19:17 10/02/17 01:01 Blood Gas Puncture Site RT RADIAL ART LINE ART LINE ART LINE Blood Gas Patient Temperature 98.6 98.6 98.6 98.6 Blood Gas HCO3 12 mmol/L (22-26) 9 mmol/L (22-26) 18 mmol/L (22-26) 21 mmol/L (22-26) Blood Gas Base Excess -18.8 mmol/L (-2-2) -15.9 mmol/L (-2-2) -5.9 mmol/L (-2-2) -2.4 mmol/L (-2-2) Blood Gas Oxygen Saturation 98 % (90-100) 98 % (90-100) 96 % (90-100) 97 % ( 90-100) Arterial Blood pH 6.87 (7.380-7.420) 7.34 (7.380-7.420) 7.43 (7.380-7.420) 7.46 (7.380-7.420) Arterial Blood Partial Pressure CO2 70 mmHg (38-42) 17 mmHg (38-42) 27 mmHg (38-42) 30 mmHg (38-42) Arterial Blood Partial Pressure O2 307 mmHG (61-120) 221 mmHG (61-120) 100 mmHg (61-120) 151 mmHg (61-120) Arterial Blood Oxygen Content 19.2 Vol % (12.0-20.0) 20.2 Vol % (12.0-20.0) 16.6 Vol % (12.0-20.0) 17.4 Vol % (12.0-20.0) Arterial Blood Carboxyhemoglobin 0.0 % (0-4) 0.5 % (0-4) 0.5 % (0-4) 0.6 % (0-4) Arterial Blood Methemoglobin 0.9 % (0-2) 1.0 % (0-2) 1.7 % (0-2) 1.6 % (0-2) Blood Gas Hemoglobin 13.5 G/DL (12.0-16.0) 14.4 G/DL (12.0-16.0) 12.3 G/DL (12.0-16.0) 12.6 G/DL (12.0-16.0) Oxygen Delivery Device VENTILATOR VENTILATOR VENTILATOR VENTILATOR Blood Gas Ventilator Setting PRVC/AC20/500/5PEEP PRVC/AC20/500/ Blood Gas Inspired Oxygen 100 % 40 % 40 % 40 % Imaging Last Impressions Chest X-Ray 10/02/17 0000 Signed Impressions: CONCLUSION: No significant change. Head CT 10/01/17 1312 Signed Impressions: CONCLUSION: 1. CT findings most characteristic of diffuse anoxic injury. Findings discusse d with referring physician. Exam is degraded by motion artifact. Cervical Spine CT 10/01/17 0000 Signed Impressions: CONCLUSION: 1. No acute findings. No canal stenosis. CT Angiography 10/01/17 0000 Signed Impressions: CONCLUSION: 1. Negative for pulmonary embolus. 2. Small pericardial effusion. Endotracheal tube and nasogastric tube in good position. Scattered mild groundglass opacity in the lungs. Objective Remarks General: Middle-aged lady, obese, unresponsive, intubated, ill-appearing HEENT: Pupils are equal, and dilated, not reactive, sclerae are anicteric, neck is supple, no rigidity, no JVD, orally intubated, left IJ Vas-Cath in place, site is clean CV: Regular heart sounds, no murmurs appreciated Chest: Coarse breath sounds b/l, good air entry, no wheezes Abdomen: Soft, appears non-tender, non-distended, BS present Skin: No rashes, no cyanosis Extremities: Warm and well-perfused, no edema, + peripheral pulses, right femoral central and arterial lines Neuro: Intubated, on no sedation, pupils dilated and not reactive, no corneal, no cough, no gag, no withdrawal to painful stimuli, triggers and initiates breaths A/P Assessment and Plan 1. Cardiac arrest 4 -PEA, etiology is unclear so far. UDS positive for opiates and ethanol + in blood raises the suspicion of a primary respiratory arrest followed by cardiac 2. Acute hypoxic and hypercapnic respiratory failure -improving 3. Acute encephalopathy with concern for brain anoxia -unchanged 4. Severe metabolic and respiratory acidosis -better 5. Circulatory shock -improved, still requiring pressor support 6. Likely aspiration pneumonia 7. Severe lactic acidosis -trending down 8. Liver failure -worsening 9. IDA -improved, great urine output 10. Elevated TSH, slightly low free T4 and normal free T3 -likely sick euthyroid 11. Hyperammonemia -improved 12. Hypophosphatemia/hypomagnesemia/hypocalcemia 13. Non-STEMI 1. Continue PRVC at current vent settings. The rate decreased to 16 however patient is still breathing 20-22 times a minute. No auto PEEP, PIP is 24 2. Vent bundle and bronchodilators 3. Continue norepinephrine for blood pressure support, maintain map above 65 4. Stop bicarb drip 5. Monitor urine output 6. Replete phos, magnesium, calcium 7. Maintenance fluids with LR 8. Follow-up blood cultures, sputum culture, urine culture 9. Continue empiric antibiotic with vancomycin and Zosyn 10. On full dose anticoagulation with heparin 11. GI prophylaxis with pantoprazole 12. Appreciate nephrology consult 13. DVT prophylaxis with SCDs and addressed above 14. Maintain sodium 145-150 15. Head of the bed elevated 16. Maintain normothermia Patient remains critically ill with multisystem organ failure, loss of some of the brain stem reflexes in the CT head consistent with diffuse anoxic injury. Patient is at very high risk for further deterioration and . Prognosis remains extremely poor. This was discussed in detail with nora present at bedside. He was patient's partner over the last 6 years. Patient also has a son and 3 brothers. I spent 35 minutes of critical care time, excluding procedures, managing pressors, ventilator, fluids, reviewing data and ordering investigations, discussing with nursing staff and nora present at bedside. Skyler Anders MD Oct 02, 2017 08:40
[2017-10-02] MEDS ORDERED: CALCIUM CHLORIDE IV ONE ×2 (10:00)
[2017-10-02] MEDS ORDERED: DEXTROSE 5% IV ONE ×2 (10:00)
[2017-10-02] MEDS ORDERED: WATER IV ONE ×2 (10:00)
--- NOTE | 2017-10-02 11:18 | HHI.NPPN ---
Subjective Additional Remarks Remains intubated, no gag reflex per nursing Objective Data Data 10/02/17 10/03/17 19:00 07:00 Intake Total 170 ml Balance 170 ml Intake IV Total 170 ml Vital Signs Date Time Temp Pulse Resp B/P (MAP) Pulse Ox O2 Delivery O2 Flow Rate FiO2 10/02/17 08:23 97 30 10/02/17 08:00 96.1 119 20 100/55 (70) 97 112/63 (79) 10/02/17 08:00 30 10/02/17 08:00 119 10/02/17 07:00 118 116/67 10/02/17 06:22 117 110/64 10/02/17 06:00 117 10/02/17 05:00 115 110/65 10/02/17 04:20 116 111/67 10/02/17 04:10 118 96/57 10/02/17 04:00 120 10/02/17 04:00 120 108/65 10/02/17 04:00 98.6 120 20 93/61 (72) 99 108/65 (79) 10/02/17 04:00 30 10/02/17 03:50 120 108/66 10/02/17 03:40 124 101/60 10/02/17 03:30 125 112/65 10/02/17 03:20 125 138/78 10/02/17 03:10 124 156/94 10/02/17 03:00 121 116/67 10/02/17 02:55 100 30 10/02/17 02:10 116 126/74 10/02/17 02:00 115 10/02/17 02:00 115 127/75 10/02/17 01:20 114 122/72 10/02/17 00:52 100 40 10/02/17 00:00 40 10/02/17 00:00 97.2 113 20 125/64 (84) 100 130/81 (97) 10/02/17 00:00 113 10/01/17 23:40 110 131/81 10/01/17 23:30 112 141/88 10/01/17 23:20 111 139/87 10/01/17 23:10 110 137/86 10/01/17 23:00 111 136/86 10/01/17 22:50 112 135/86 10/01/17 22:45 112 136/86 10/01/17 22:35 113 142/89 10/01/17 22:17 114 134/86 10/01/17 22:00 113 10/01/17 21:00 120 124/77 10/01/17 20:45 120 116/71 10/01/17 20:31 123 115/72 10/01/17 20:15 122 111/68 10/01/17 20:00 124 10/01/17 20:00 40 10/01/17 20:00 97.5 124 20 88/63 (71) 100 105/64 (78) 10/01/17 19:48 127 103/62 10/01/17 19:22 100 40 10/01/17 19:00 118 95/58 10/01/17 18:53 124 82/53 10/01/17 18:36 131 79/48 10/01/17 17:59 96.7 148 28 156/94 (114) 100 Ventilator 40 10/01/17 17:15 100 100 10/01/17 16:44 97.2 147 28 129/76 (93) 100 Ventilator 40 10/01/17 16:40 96.7 148 28 156/94 (114) 100 Ventilator 40 10/01/17 15:58 95.0 137 27 148/85 (106) 100 Ventilator 40 10/01/17 15:39 94.3 133 28 189/111 (137) 100 Ventilator 40 10/01/17 15:15 93.4 128 27 160/98 (118) 100 Ventilator 40 10/01/17 15:10 100 10/01/17 15:04 123 142/85 10/01/17 14:45 117 18 100 Ventilator 100 10/01/17 13:15 98 100 10/01/17 13:04 111 14 118/76 (90) 86 -: 10/02/17 0417 10/02/17 0417 Microbiology 10/01/17 Aerobic Blood Culture - Preliminary, Resulted NO GROWTH IN 1 DAY 10/01/17 Anaerobic Blood Culture - Preliminary, Resulted NO GROWTH IN 1 DAY 10/01/17 Aerobic Blood Culture - Preliminary, Resulted NO GROWTH IN 1 DAY 10/01/17 Anaerobic Blood Culture - Preliminary, Resulted NO GROWTH IN 1 DAY 10/01/17 Gram Stain - Final, Resulted 10/01/17 Sputum Culture, Resulted Pending 10/01/17 Urine Culture - Preliminary, Resulted NO GROWTH IN 24 HOURS. Physical Exam General Appearance: Well Developed, Well Nourished Throat Throat Exam: Oral Mucosa [place] & Moist Neck Neck Exam: Neck Supple Pulmonary Resp Exam: Decreased Bases, Diminished Breath Sounds Cardiology CV Exam: Regular, Normal Sinus Rhythm Gastrointestinal/Abdomen GI Exam: Soft, Non-Tender, Bowel Sounds Present Integumentary Skin Exam: Dry, Intact Extremeties Extremities Exam: Trace Edema Neurologic Neuro Exam: Comatose Assessment/Plan Problem List: (1) Acidosis ICD Codes: E87.2 - Acidosis Plan: Acidosis in the setting of cardiac arrest. Initially consulted for CRRT post resuscitation and significant lactic acidosis. Acidosis has improved, making urine Continues on ventilator and pressor support. Na 155 - will change IVFs to D5W + 25meq NaHCO3 (hypotonic solution with NaHCO3 ) for hypernatremia (2) Cardiac arrest ICD Codes: I46.9 - Cardiac arrest, cause unspecified Status: Acute Plan: Prolonged CPR, with possible anoxic brain injury. apparently absent gag reflexes per nursing - continue to follow goals of care Nick Alatorre MD Oct 02, 2017 11:18
--- NOTE | 2017-10-02 11:22 | MB ---
cc: Miguelito Bernal MD DATE: 10/02/2017 REASON FOR CONSULTATION: Cardiac arrest. HISTORY OF PRESENT ILLNESS: The patient is an unfortunate 47-year-old woman, who was brought in due to opiate overdose, found unresponsive. She was resuscitated, but had loss of pulse multiple times and was called multiple PEA arrests. She was intubated and brought to the intensive care unit where initial echocardiogram showed a preserved ejection fraction without any major cardiac structural abnormalities. Her troponins were positive. The patient has not shown significant neurologic recovery as she is not on sedation, but remains unresponsive. PAST MEDICAL HISTORY: Unknown due to the patient's condition. CURRENT MEDICATIONS: Vancomycin, calcium, Protonix, heparin, Zosyn, vasopressin. ALLERGIES: NO KNOWN DRUG ALLERGIES. PHYSICAL EXAMINATION: VITAL SIGNS: Afebrile, pulse 118, respiratory rate 20, BP 96/57, saturating 97 on the vent. GENERAL: Intubated, unresponsive woman. NECK: No JVD. LUNGS: Ventilator sounds. CARDIOVASCULAR: Regular rate and rhythm. No murmurs appreciated. ABDOMEN: Benign. EXTREMITIES: No edema. LABORATORY DATA: Sodium 155, potassium 3.4, chloride 120, bicarbonate 22.2, BUN 27, creatinine 1.6. Lactic acid 4.2, down from 14.5. Troponin peaked at 3.72. Blood gas showed initial pH of 6.87. IMPRESSION: Opiate overdose. Unfortunately, the patient appears to have had a significant opiate overdose by her toxicology screen and was severely acidemic on arrival. Her multiple laboratory abnormalities including her troponin are likely due to her respiratory arrest. She does not have any apparent neurologic recovery. At this point, she would not be a candidate for any invasive cardiac procedure. At this point, I will sign off, but if her condition changes appreciably, please call with any questions. Thank you again for the opportunity to participate in the patient's care. Miguelito Bernal MD CAREY/TL , 09:14 AM , 11:20 AM
[2017-10-02] MEDS ORDERED: WATE IV SCH ×2 (11:30)
[2017-10-02] MEDS ORDERED: SODIUM BICARBONATE IV SCH ×2 (11:30)
[2017-10-02] MEDS ORDERED: DEXTROSE 5% IV SCH ×2 (11:30)
[2017-10-02] MEDS: LACTATED RINGER'S 1000 ML INJ 1,000 ML IV SCH (12:30)
[2017-10-02 13:31] LABS: ALBUMIN 2.6 GM/DL (3.4-5.0); ALKALINE PHOSPHATASE 64 U/L (45-117); ALT (GPT) 1409 U/L (10-53); AST (GOT) 2773 U/L (15-37); BICARBONATE 24.8 MEQ/L (21.0-32.0); BLOOD UREA NITROGEN 28 MG/DL (7-18); CALCIUM 7.5 MG/DL (8.5-10.1); CHLORIDE 123 MEQ/L (98-107); CREATININE 1.86 MG/DL (0.50-1.00); GLOMERULAR FILTRATION RATE 29 ML/MIN (>89); GLUCOSE,RANDOM 166 MG/DL (74-106); MAGNESIUM 1.9 MG/DL (1.5-2.5); PHOSPHORUS 1.7 MG/DL (2.5-4.9); TOTAL BILIRUBIN ADULT 0.7 MG/DL (0.2-1.0); TOTAL PROTEIN 5.4 GM/DL (6.4-8.2)
[2017-10-02 13:54] LABS: SODIUM (NA) 158 MEQ/L (136-145)
--- NOTE | 2017-10-02 14:25 | EKG ---
Date Performed: 10/01/2017 Time Performed: 13:10:28 PTAGE: 47 years EKG: SINUS TACHYCARDIA POSSIBLE RIGHT VENTRICULAR CONDUCTION DELAY NONSPECIFIC ST & T-WAVE ABNOR MALITY ABNORMAL RHYTHM ECG PREVIOUS TRACING : 05/01/[address] depressions are new since prior tracing, cannot exclude i schemia. DOCTOR: Iraj Fatima Interpretating Date/Time 10/02/2017 14:25:21
--- NOTE | 2017-10-02 14:27 | EKG ---
Date Performed: 10/01/2017 Time Performed: 16:39:35 PTAGE: 47 years EKG: MARKED BASELINE ARTIFACT MAKES IT SUBSTANDARD FOR INTERPRETATION PATIENT IS IN TACHYCARDIA BUT I CANNOT TELL THE MECHANISM DUE TO ARTIFACT. CANNOT INTERPRET CHANGES IN THE ST SEGMENTS DUE TO A RTIFACT. REPEAT TRACING IS ADVISED. ABNORMAL ECG PREVIOUS TRACING : 10/01/2017 13.10 DOCTOR: Iraj Fatima Interpretating Date/Time 10/02/2017 14:26:24
[2017-10-02] MEDS ORDERED: VANCOMYCIN INJ 1,500 MG in SODIUM CHLORID 0.9% 500 ML INJ 500 ML IV SCH (16:00)
[2017-10-02] MEDS ORDERED: POTASSIUM CHLORIDE INJ 30 MEQ in SODIUM CHLORIDE 0.9% INJ 100 ML IV-CENTRAL ONE (17:00)
[2017-10-02] MEDS ORDERED: ENOXAPARIN SODIUM 40 MG/0.4 ML SYRINGE SQ SCH (18:00)
[2017-10-02] MEDS: VASOPRESSIN INJ 40 UNITS in DEXTROSE 5% IN WATER 100ML INJ 98 ML IV SCH ×2 (19:12)
[2017-10-03] VITALS (19 sets, daily range): BP systolic 86–134; BP diastolic 54–79; PULSE 104–120; RESP 14–21; TEMP 98–99.2; O2SAT 0–99
[2017-10-03] MEDS: PIPERACIL-TAZO 3.375 GM PREMIX 50 ML IV SCH ×2 (00:06→09:02)
[2017-10-03] MEDS: LACTATED RINGER'S 1000 ML INJ 1,000 ML IV SCH (00:13)
[2017-10-03] MEDS: NOREPINEPHRINE-DEXTROSE DRIP 250 ML IV PRN ×2 (02:04→10:41)
[2017-10-03] MEDS: RESP: ALBUTEROL 2.5 MG/IPRATROPIUM 0.5 MG NEB (SCH) INH ×3 (03:27→15:03)
[2017-10-03] MEDS: CHLORHEXIDINE GLUCONATE 2 % 1 PACK (2 CLOTHS) TOP SCH (04:00)
--- NOTE | 2017-10-03 04:36 | RADRPT ---
EXAM DATE: 10/03/2017 4:23 AM EDT AGE/SEX: 47 years / Female INDICATIONS: Shortness of breath, possible pulmonary disease. CLINICAL DATA: This is the patient's subsequent encounter. Patient reports that signs and symptoms h ave been present for 3 days and indicates a pain score of Nonresponsive. MEDICAL/SURGICAL HISTORY: None. . Gastric bypass. Mastectomy, bilateral. Hysterectomy. COMPARISON: [facility] [place], CHEST SINGLE AP, 10/02/2017. . FINDINGS: The ET tube, NG tube and left internal jugular central lines are well placed. The heart size is tito l. There is minimal increased density in the left medial base in the retrocardiac region. Right lung is clear. CONCLUSION: Minimal atelectasis or consolidation at the medial left base. Electronically signed by: Omer Javed MD 10/03/2017 4:35 AM EDT
[2017-10-03 06:38] LABS: ALBUMIN 2.4 GM/DL (3.4-5.0); ALKALINE PHOSPHATASE 76 U/L (45-117); ALT (GPT) 1129 U/L (10-53); AST (GOT) 1018 U/L (15-37); BICARBONATE 23.1 MEQ/L (21.0-32.0); BLOOD UREA NITROGEN 28 MG/DL (7-18); CALCIUM 7.5 MG/DL (8.5-10.1); CHLORIDE 130 MEQ/L (98-107); CREATININE 2.33 MG/DL (0.50-1.00); GLOMERULAR FILTRATION RATE 22 ML/MIN (>89); GLUCOSE,RANDOM 167 MG/DL (74-106); MAGNESIUM 1.9 MG/DL (1.5-2.5); PHOSPHORUS 4.5 MG/DL (2.5-4.9); TOTAL BILIRUBIN ADULT 0.6 MG/DL (0.2-1.0); TOTAL PROTEIN 5.3 GM/DL (6.4-8.2)
[2017-10-03 06:45] LABS: SODIUM (NA) 165 MEQ/L (136-145)
[2017-10-03] MEDS ORDERED: DEXTROSE 5% IN WATE 1000ML INJ 1,000 ML IV SCH (08:00)
[2017-10-03] MEDS: ARTIFICIAL TEARS OPTH SOLN 15 ML BTL EACH EYE SCH ×2 (09:00→13:00)
[2017-10-03] MEDS: PANTOPRAZOLE SODIUM 40 MG VIAL IV PUSH SCH (09:02)
[2017-10-03] MEDS: CHLORHEXIDINE 0.12% (ORAL KIT) 15 ML CUP MT SCH (09:03)
--- NOTE | 2017-10-03 11:11 | MB ---
cc: Erlin Peck MD DATE: 10/03/2017 HISTORY OF PRESENT ILLNESS: A 47-year-old woman admitted on 10/01/2017. History of gastric bypass, alcoholism, daily drinker, status post cardiac arrest,heart stopped 4 times, found unresponsive by his fiancee. Twelve minutes of bystander CPR, was in PEA, more CPR in the ER: no ALLERGIES: NO KNOWN DRUG ALLERGIES. CURRENT MEDICATIONS: Not on any sedatives. She is on dextrose. She got some vancomycin. She is on pressors. PHYSICAL EXAMINATION: VITAL SIGNS: On exam, 118 systolic at this time, pulse of 112, 99.2, 86/63. Lowest blood pressure recorded at 79/48 here. NECK No carotid bruits. HEART: Regular rhythm. I did not detect a murmur. NEUROLOGIC: Pupils are equal. Doll's eyes are abnormal. Corneals are nonreactive. No reaction to pain. She is areflexic. There is no ankle clonus. Toes are mute. She is flaccid throughout. No response to nasal stimuli. Pupils actually appear to maybe dilate very slightly in a darkened room with a flashlight. They do not constrict. LABORATORY DATA: White count is 22,000, otherwise CBC generally unremarkable. Worst ABG 6.87, when she was first admitted with a pH 6.87. Sodium is 165, creatinine is 2.3, potassium 3.4. LFTs were as high as 4000; they have come down to about 1000. Calcium 7.5, magnesium is normal. CPK was normal. Troponin was elevated to 3. Albumin is 2.4. Ammonia level was 259, down to 43. TSH was elevated on 10/01/2017 to 23. T4 low. IMAGING STUDIES: CT of the brain: Poor quality study, but appears to show some diffuse hypodensity. IMPRESSION: Anoxic encephalopathy. The nurse tells me she may be breathing over the vent. The EEG is extremely low, looks like almost electrocerebral silence, preliminary report. RECOMMENDATIONS: Considering all the evidence here, I think it would be best if the family just put her on comfort measures and withdrew the pressors as evidently her blood pressure without pressors cannot be maintained. I think her prognosis is poor. MD MANNIE Duran/JEANNA , 10:40 AM , 11:10 AM
--- NOTE | 2017-10-03 11:31 | HHI.CCPN ---
Subjective Remarks/Hospital Course 47-year-old lady with history of gastric bypass, per chart alcoholic, drinking daily, now brought in post cardiac arrest. History is limited and it is obtained from ED physician since there is no family present at bedside. Patient was found unresponsive on the floor by her fianc sometime after 9:30 this morning. EMS was called and patient underwent approximately 12 minutes of bystander CPR. On EMS arrival patient was in PEA. Patient had ROSC but she arrested another 2 times on route to the hospital. Per documentation she she was given Narcan, epinephrine 5, bicarb 1 and calcium chloride. On ED arrival patient had a pulse however she lost the pulse briefly after arrival. She underwent another round of CPR in ED for again PEA arrest for which he received 1 epinephrine. An emergent central line and arterial line was placed by ED physician and patient was given 1 L saline bolus, 1 bicarb, and she was started on norepinephrine infusion. Was emergently intubated and placed on mechanical ventilation. [facility] is now consulted for ICU admission. Of note, patient did not receive any sedation since ED arrival. Patient was seen immediately in ER, she is intubated, unresponsive. Norepinephrine is at 30 mcg/ min. 10/03: Patient remains critically ill, on pressors, intubated, off sedation. Urine output significantly improved last evening, not requiring CRRT. She is currently on norepinephrine at 9. Acidosis is improved, lactic acid is trending down. Patient remains completely off sedation, unresponsive. 10/04: No events over the night. Patient remains completely unresponsive, despite not being on any medication for sedation since admission. T-max of 99.9 , urine output of 4000 over the last 24 hours. She remains on norepinephrine at 8 mcg/min. Nora present at bedside. Objective Vital Signs Date Time Temp Pulse Resp B/P (MAP) Pulse Ox O2 Delivery O2 Flow Rate FiO2 10/03/17 10:01 96 30 10/03/17 10:00 115 10/03/17 08:00 99.2 19 86/63 (71) 110/60 (77) 10/01/17 17:59 Ventilator Intake and Output 10/03/17 10/03/17 10/04/17 08:00 16:00 00:00 Intake Total 1642 ml 265 ml Output Total 1600 ml Balance 42 ml 265 ml Result Diagram: 10/02/17 0417 10/03/17 0534 Other Results Microbiology Date/Time Source Procedure Growth Status 10/01/17 13:30 Blood Peripheral Aerobic Blood Culture - Preliminary NO GROWTH IN 2 DAYS Resulted 10/01/17 13:30 Blood Peripheral Anaerobic Blood Culture - Preliminary NO GROWTH IN 2 DAYS Resulted 10/01/17 13:25 Blood Peripheral Aerobic Blood Culture - Preliminary NO GROWTH IN 2 DAYS Resulted 10/01/17 13:25 Blood Peripheral Anaerobic Blood Culture - Preliminary NO GROWTH IN 2 DAYS Resulted 10/01/17 16:45 Sputum Endotracheal Gram Stain - Final Resulted 10/01/17 16:45 Sputum Culture - Preliminary Gram Negative Neri Resulted 10/01/17 14:20 Urine Catheterized Urine Urine Culture - Final NO GROWTH IN 48 HOURS. Complete Laboratory Tests Test 10/02/17 14:55 10/03/17 06:00 Blood Gas Puncture Site ART LINE ART LINE Blood Gas Patient Temperature 98.6 98.6 Blood Gas HCO3 23 mmol/L (22-26) 23 mmol/L (22-26) Blood Gas Base Excess 1.2 mmol/L (-2-2) -0.7 mmol/L (-2-2) Blood Gas Oxygen Saturation 94 % (90-100) 95 % (90-100) Arterial Blood pH 7.56 (7.380-7.420) 7.47 (7.380-7.420) Arterial Blood Partial Pressure CO2 26 mmHg (38-42) 32 mmHg (38-42) Arterial Blood Partial Pressure O2 80 mmHg (61-120) 88 mmHg (61-120) Arterial Blood Oxygen Content 16.9 Vol % (12.0-20.0) 15.4 Vol % (12.0-20.0) Arterial Blood Carboxyhemoglobin 0.9 % (0-4) 0.6 % (0-4) Arterial Blood Methemoglobin 1.7 % (0-2) 1.7 % (0-2) Blood Gas Hemoglobin 12.7 G/DL (12.0-16.0) 11.5 G/DL (12.0-16.0) Oxygen Delivery Device VENTILATOR VENTILATOR Blood Gas Ventilator Setting SEE COMMENTS Blood Gas Inspired Oxygen 30 % 30 % Imaging Last 24 hours Impressions Chest X-Ray 10/03/17 0600 Signed Impressions: CONCLUSION: Minimal atelectasis or consolidation at the medial left base. Last Impressions Chest X-Ray 10/02/17 0000 Signed Impressions: CONCLUSION: No significant change. Head CT 10/01/17 1312 Signed Impressions: CONCLUSION: 1. CT findings most characteristic of diffuse anoxic injury. Findings discusse d with referring physician. Exam is degraded by motion artifact. Cervical Spine CT 10/01/17 0000 Signed Impressions: CONCLUSION: 1. No acute findings. No canal stenosis. CT Angiography 10/01/17 0000 Signed Impressions: CONCLUSION: 1. Negative for pulmonary embolus. 2. Small pericardial effusion. Endotracheal tube and nasogastric tube in good position. Scattered mild groundglass opacity in the lungs. Objective Remarks General: Middle-aged lady, obese, unresponsive, intubated, ill-appearing HEENT: Pupils equal, dilated, not reactive, sclerae anicteric, neck supple, no rigidity, no neck vein distention, orally intubated, left IJ Vas-Cath in place, site is clean CV: Regular S1 and S2, no murmurs, rubs or gallops appreciated Chest: Coarse breath sounds b/l, good air entry, no wheezes Abdomen: Soft, appears non-tender, non-distended, BS present Skin: No rashes, no cyanosis Extremities: Warm and well-perfused, no edema, + peripheral pulses, right femoral central and arterial lines -site remains clean Neuro: Intubated, on no sedation, pupils dilated and not reactive, no corneal, no cough, no gag, no withdrawal to painful stimuli, triggers and initiates breaths A/P Assessment and Plan 1. Cardiac arrest 4 -PEA, etiology is unclear so far. UDS positive for opiates and ethanol + in blood raises the suspicion of a primary respiratory arrest followed by cardiac 2. Acute hypoxic and hypercapnic respiratory failure -improved 3. Acute encephalopathy with concern for brain anoxia -unchanged 4. Severe metabolic and respiratory acidosis -resolved 5. Circulatory shock -improved, still requiring pressor support but improved requirements 6. Likely aspiration pneumonia -growing gram-negative bacteria in the sputum 7. Severe lactic acidosis -significantly improved 8. Liver failure -enzymes coming down 9. IDA -improved, great urine output 10. Elevated TSH, slightly low free T4 and normal free T3 -likely sick euthyroid 11. Hyperammonemia -improved 12. Hypophosphatemia/hypomagnesemia/hypocalcemia -improved with repletion 13. Non-STEMI 14. Hypernatremia -worsening 1. Continue PRVC at current vent settings. Patient is synchronized with the ventilator, no auto PEEP, PIP is 20 2. Vent bundle and bronchodilators 3. Continue norepinephrine for blood pressure support, maintain map above 65 4. Stop LR and start low-dose D5W to try to improve hypernatremia 5. Monitor urine output 6. Follow-up blood cultures, sputum culture, urine culture 7. Continue empiric antibiotic with vancomycin and Zosyn 8. We will ask neurology consult for neuro prognostication postarrest 9. GI prophylaxis with pantoprazole 10. Palliative care consult 11. DVT prophylaxis with SCDs and Lovenox 12. Maintain sodium 145-150 13. Head of the bed elevated 14. Maintain normothermia Patient remains critically ill with multisystem organ failure, loss of some of the brain stem reflexes in the CT head consistent with diffuse anoxic injury. Patient is at very high risk for further deterioration and . Prognosis remains extremely poor. This was discussed in detail with nora present at bedside this morning and with son present at bedside yesterday afternoon. I spent 32 minutes of critical care time, excluding procedures, managing pressors, ventilator, fluids, reviewing data and ordering investigations, discussing with nursing staff and nora present at bedside. Skyler Anders MD Oct 03, 2017 11:31
--- NOTE | 2017-10-03 11:32 | MG ---
cc: Erlin Peck MD INDICATION: Anoxic encephalopathy, on Pressors. DESCRIPTION: Recording shows diffusely low-amplitude recording. There is no hemisphere asymmetry. Photic stimulation is performed with what looks like some bifrontal driving, which is synchronous and symmetric. Does not look like a photo electric effect at several frequencies, although low-amplitude. EKG artifact is noted. IMPRESSION: An extremely low-amplitude recording. There is some driving bifrontally with photic stimulation, which did not look like photo electric effect. As such, I would not say this recording is consistent with brain . Some very low-amplitude beta rhythms are also noted, which could be just some ICU artifact versus some diffuse low-amplitude brain recording. No hemisphere asymmetries is noted. No seizure activity was noted. Erlin Peck MD DJM/TL , 11:18 AM , 11:31 AM
--- NOTE | 2017-10-03 15:08 | PD.CONS ---
Consult Service Palliative Care . Consult Requested By Dr. Anders . Primary Care Physician Unknown . Reason for Consultation a. To assist with evaluation and management of symptoms including: dyspnea, pain. b. To assist medical decision maker(s) with: better understanding of current medical conditions; weighing benefits/burdens of medical treatment options; making medical treatment decisions. . HPI History of Present Illness Ms. Rueda is a 47 year old female with past medical history of Factor V Lieden, anxiety, depression, high cholesterol. elevated BMI, scoliosis, alcohol use. Patient presented to [facility] emergency department via EMS after she suffered an unwitnessed cardiac arrest on 10/01/17. Her significant other had seen her around 9:30 AM and found her unresponsive around noon. Upon finding patient unresponsive her significant other began CPR. EMS was called and patient underwent approximately 12 minutes of bystander CPR. On EMS arrival patient was in PEA. Patient had ROSC but she arrested another 2 times on route to the hospital. Per documentation she she was given Narcan, epinephrine 5, bicarb 1 and calcium chloride. On ED arrival patient had a pulse however she lost the pulse briefly after arrival. She underwent another round of CPR in ED for again PEA arrest for which he received 1 epinephrine. An emergent central line and arterial line was placed by ED physician and patient was given 1 L saline bolus, 1 bicarb, and she was started on norepinephrine infusion. Was emergently intubated and placed on mechanical ventilation. She was transferred to ICU and started on norepinephrine. CT head on 10/01/17 revealed diffuse anoxic injury. Additional findings include elevated WBC, toxicology positive opiates, acute kidney injury creatinine 1.55, lactic acidosis 14.5, elevated liver enzymes and ammonia levels, TSH 22.9. Patient remains unresponsive off all sedation since admission in ICU. Patient remains intubated, off sedation with dilated, nonreactive pupils, no corneal, no cough, no gag, no withdraw to painful stimuli. She intermittently breathes over mechanical vent. EEG with low amplitude beta rhythms noted, may be ICU artifact versus diffuse low amplitude brain recording, no seizure activity noted. Neurology, Dr. Peck feels prognosis is poor. Nephrology following. Palliative care was consulted to assist with further clarification of medical treatment goals. After meeting with patient's son, significant other and brother they have elected to proceed with transition to comfort focused care with compassionate withdrawal of life support. Orders entered. Discussed with Dr. Anders and nursing staff. . 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 . Review of Systems ROS Limitations: Intubated, Unresponsive Endocrine: DENIES: Abnorml menstrual pattern, Heat/cold intolerance, Polydipsia , Polyuria, Polyphagia Eyes: COMPLAINS OF: Blurred vision (Wears glasses) Ears, nose, mouth, throat: DENIES: Tinnitus, Hearing loss, Vertigo, Nasal discharge, Oral lesions, Throat pain, Hoarseness, Ear Pain, Running Nose, Epistaxis, Sinus Pain, Toothache, Odynophagia Respiratory: COMPLAINS OF: Apneas, Shortness of breath Cardiovascular: COMPLAINS OF: Dyspnea on Exertion Gastrointestinal: DENIES: Abdominal pain, Black stools, Bloody stools, Constipation, Diarrhea, Nausea, Vomiting, Difficulty Swallowing, Anorexia, Dyspepsia or heartburn, Excessive gas, Bloating, Vomiting blood Genitourinary: DENIES: Abnormal vaginal bleeding, Dysmenorrhea, Dyspareunia, Sexual dysfunction, Urinary frequency, Urinary incontinence, Urgency, Hematuria , Dysuria, Nocturia, Vaginal discharge, Hesitancy, Dribbling, Decreased stream Musculoskeletal: COMPLAINS OF: Joint pain, Back pain Integumentary: DENIES: Abnormal pigmentation, Pruritus, Rash, Nail changes, Breast masses, Breast skin changes, Nipple discharge, Nodules, Tumors, Excessive dryness, Non-healing sores Hematologic/Lymphatics: COMPLAINS OF: Bruising Immunologic/Allergic: DENIES: Eczema, Urticaria Neurologic: DENIES: Abnormal gait, Headache, Localized weakness, Paresthesias, Seizures, Speech Problems, Tremor, Poor Balance, Change in smell or taste Psychiatric: COMPLAINS OF: Anxiety, Depression Other ROS: ROS unable to be obtained by patient, patient unresponsive. ROS per family report. Past Family Social History Coded Allergies: No Known Allergies (Verified Allergy, Unknown, 10/01/17) Past Medical History Factor V Leiden deficiency Anxiety Depression Scoliosis Arthritis Hypercholesterolemia Sleep apnea . Past Surgical History Laparoscopic tubal ligation Uterine ablation 2006 Ganglion removed left wrist 1999 Laparoscopic Betsy-en-Y gastric bypass 2008 Breast reduction 2007 . Reported Medications Reported Meds & Active Scripts Active Active Prescriptions or Reported Medications Unobtainable . Current Medications Medications (Trade) Dose Ordered Sig/Fausto Route Start Time Stop Time Status Last Admin (NS Flush) 2 ml UNSCH PRN IV FLUSH 10/01/17 13:15 (Brethine Inj) 1 mg UNSCH PRN SQ 10/01/17 13:30 (Protonix Inj) 40 mg DAILY IV PUSH 10/02/17 09:00 10/03/17 09:02 (Tears Naturale Opth Soln) 1 drop TID EACH EYE 10/01/17 18:00 (Duoneb Neb) 1 ampule Q6HR NEB INH 10/01/17 16:00 10/03/17 08:39 ([facility] Nursing Information) 1 Q361D XX 10/01/17 15:15 10/01/17 15:15 (Chlorhexidine 2% Cloth) 3 pack Taper DAILY@04 TOP 10/02/17 04:00 09/28/18 03:59 10/03/17 04:00 (Chlorhexidine 2% Cloth) 3 pack UNSCH PRN TOP 10/01/17 15:15 (Peridex 0.12% Liq) 15 ml BID@08,20 MT 10/01/17 20:00 10/03/17 09:03 Pharmacy Profile Note 0 ml @ 0 mls/hr UNSCH OTHER 10/01/17 15:30 Vancomycin HCl 1500 mg/Sodium Chloride 515 ml @ 250 mls/hr Q24H IV 10/02/17 16:00 Future Hold 10/02/17 16:23 Piperacillin Sod/ Tazobactam Sod 50 ml @ 100 mls/hr Q8H IV 10/02/17 00:00 10/03/17 09:02 Vasopressin 40 units/Dextrose 100 ml @ 1.5 mls/hr Q24H IV 10/01/17 19:12 10/01/17 19:48 Norepinephrine Bitartrate 250 ml @ 7.5 mls/hr TITRATE PRN IV 10/01/17 19:30 10/03/17 02:04 Dextrose 1,000 ml @ 84 mls/hr [id number] IV 10/03/17 08:00 10/03/17 09:04 Family History Mother of complications secondary to Parkinson's disease, history of factor V Leiden with thrombosis. Father of cirrhosis. 3 brothers alive, 2 brothers with factor V Leiden 1 with prior thrombosis. One son, alive and well. No daughters. No sisters. . Substance Use Tobacco: Alcohol: Daily alcohol use. Prescription med abuse: Unknown. Illicits: Unknown. Psychosocial History Lives with her significant other, Rich. Has 1 adult son, Guillermo. Has 3 brothers. No sisters parents . Worked for [place] [employer] and various other jobs. Moved to [place] at the age of 11. Previously lived in [place]. Enjoyed music, playing drums. . Spiritual/Cultural Factors Shinto delbert. . Living Will: Never completed Health Care Surrogate: Never completed Durable Power of Bulbs Farmworker: Never completed Health Care Surrogate(s): Patient is not capacitated to make her own healthcare decisions, will not regain capacity. According to [place] statutes, healthcare proxy decision making falls to her only son, Guillermo. . Today's verbally stated goals: Patient is not capacitated to make her own healthcare decisions, will not regain capacity. . Family/friends goals: Palliative care met with family all family members are in agreement that patient would not want continued life prolonging measures or procedures, have elected to proceed with transition to comfort focused care and withdrawal of life support. . Ethical and Legal Issues Patient is not capacitated to make her own healthcare decisions, will not regain capacity. According to [place] statutes, healthcare proxy decision making falls to her only son, Guillermo. Physical Exam Vital Signs Date Time Temp Pulse Resp B/P (MAP) Pulse Ox O2 Delivery O2 Flow Rate FiO2 10/03/17 13:15 97 30 10/03/17 12:00 109 10/03/17 12:00 98.5 109 14 107/57 (74) 97 119/63 (81) 10/03/17 12:00 30 10/03/17 11:00 112 10/03/17 10:01 96 30 10/03/17 10:00 115 10/03/17 09:00 112 10/03/17 08:33 97 30 10/03/17 08:00 112 10/03/17 08:00 30 10/03/17 08:00 99.2 112 19 86/63 (71) 97 110/60 (77) 10/03/17 06:00 113 10/03/17 04:00 117 10/03/17 04:00 30 10/03/17 04:00 99.3 117 20 86/68 (74) 97 114/64 (81) 10/03/17 03:29 97 30 10/03/17 02:04 117 111/60 10/03/17 02:00 117 10/03/17 01:00 119 103/56 10/03/17 00:50 119 105/57 10/03/17 00:27 99 30 10/03/17 00:00 120 10/03/17 00:00 99.9 120 20 88/56 (67) 96 101/54 (70) 10/03/17 00:00 30 10/02/17 22:00 122 10/02/17 20:00 99.9 120 12 102/52 (69) 96 109/60 (76) 10/02/17 20:00 30 10/02/17 20:00 120 10/02/17 19:55 97 30 10/02/17 19:12 112 113/63 10/02/17 19:00 119 97/54 10/02/17 18:00 117 10/02/17 16:00 120 10/02/17 16:00 30 10/02/17 16:00 99.1 120 24 98/70 (79) 97 102/72 (82) 10/02/17 14:41 97 30 10/03/17 10/04/17 19:00 07:00 Intake Total 265 ml Balance 265 ml Intake IV Total 265 ml Exam CONSTITUTIONAL/GENERAL: This is a middle-aged, overweight, unresponsive, intubated, critically ill appearing patient. TUBES/LINES/DRAINS: ETT, OG, left IJ vas-cath, PIV bilateral, bilateral soft wrist restraints, Yancey catheter. SKIN: No jaundice, rashes, or lesions. Ecchymoses on upper extremities. No wounds seen anteriorly. Skin temperature appropriate. Not diaphoretic. HEAD: Atraumatic. Normocephalic. EYES: Pupils dilated, nonreactive, anicteric sclera. ENT: Unable to adequately assess hearing, unable to visualize throat secondary to tubes. Nose without bleeding or purulent drainage. NECK: Trachea midline. CARDIOVASCULAR: Tachycardic. RESPIRATORY/CHEST: On mechanical ventilation, coarse breath sounds bilaterally. GASTROINTESTINAL: Abdomen distended. Hypoactive bowel sounds. GENITOURINARY: Without palpable bladder distension. Yancey catheter in place. MUSCULOSKELETAL: Extremities without clubbing, cyanosis, or edema. No mottling or clubbing. LYMPHATICS: Not examined. NEUROLOGICAL: Unresponsive, pupils dilated, nonreactive, no corneal, no gag, no cough, no withdraw to painful stimuli. Intermittently breathes over mechanical vent. PSYCHIATRIC: Unresponsive. . Diagnostic Tests Laboratory Laboratory Tests Test 10/01/17 13:28 10/01/17 13:30 10/01/17 14:20 10/01/17 16:18 Blood Gas Puncture Site RT RADIAL ART LINE Blood Gas Patient Temperature 98.6 98.6 Blood Gas HCO3 12 mmol/L (22-26) 9 mmol/L (22-26) Blood Gas Base Excess -18.8 mmol/L (-2-2) -15.9 mmol/L (-2-2) Blood Gas Oxygen Saturation 98 % (90-100) 98 % (90-100) Arterial Blood pH 6.87 (7.380-7.420) 7.34 (7.380-7.420) Arterial Blood Partial Pressure CO2 70 mmHg (38-42) 17 mmHg (38-42) Arterial Blood Partial Pressure O2 307 mmHG (61-120) 221 mmHG (61-120) Arterial Blood Oxygen Content 19.2 Vol % (12.0-20.0) 20.2 Vol % (12.0-20.0) Arterial Blood Carboxyhemoglobin 0.0 % (0-4) 0.5 % (0-4) Arterial Blood Methemoglobin 0.9 % (0-2) 1.0 % (0-2) Blood Gas Hemoglobin 13.5 G/DL (12.0-16.0) 14.4 G/DL (12.0-16.0) Oxygen Delivery Device VENTILATOR VENTILATOR Blood Gas Ventilator Setting Blood Gas Inspired Oxygen 100 % 40 % White Blood Count 20.2 TH/MM3 (4.0-11.0) Red Blood Count 4.30 MIL/MM3 (4.00-5.30) Hemoglobin 14.3 GM/DL (11.6-15.3) Hematocrit 45.3 % (35.0-46.0) Mean Corpuscular Volume 105.3 FL (80.0-100.0) Mean Corpuscular Hemoglobin 33.3 PG (27.0-34.0) Mean Corpuscular Hemoglobin Concent 31.6 % (32.0-36.0) Red Cell Distribution Width 13.9 % (11.6-17.2) Platelet Count 196 TH/MM3 (150-450) Mean Platelet Volume 9.1 FL (7.0-11.0) Neutrophils (%) (Auto) 44.7 % (16.0-70.0) Lymphocytes (%) (Auto) 47.8 % (9.0-44.0) Monocytes (%) (Auto) 5.5 % (0.0-8.0) Eosinophils (%) (Auto) 1.2 % (0.0-4.0) Basophils (%) (Auto) 0.8 % (0.0-2.0) Neutrophils # (Auto) 9.0 TH/MM3 (1.8-7.7) Lymphocytes # (Auto) 9.6 TH/MM3 (1.0-4.8) Monocytes # (Auto) 1.1 TH/MM3 (0-0.9) Eosinophils # (Auto) 0.3 TH/MM3 (0-0.4) Basophils # (Auto) 0.2 TH/MM3 (0-0.2) CBC Comment AUTO DIFF Differential Total Cells Counted 100 Neutrophils % (Manual) 31 % (16-70) Band Neutrophils % 16 % (0-6) Lymphocytes % 43 % (9-44) Monocytes % 1 % (0-8) Neutrophils # (Manual) 11.3 TH/MM3 (1.8-7.7) Metamyelocytes 5 % (0-1) Myelocytes 2 % (0-0) Promyelocytes 2 % (0-0) Differential Comment FINAL DIFF MANUAL Platelet Estimate NORMAL (NORMAL) Platelet Morphology Comment NORMAL (NORMAL) Prothrombin Time 10.7 SEC (9.8-11.6) Prothromb Time International Ratio 1.1 RATIO Activated Partial Thromboplast Time 31.9 SEC (24.3-30.1) Blood Urea Nitrogen 12 MG/DL (7-18) Creatinine 1.55 MG/DL (0.50-1.00) Random Glucose 287 MG/DL (74-106) Total Protein 6.5 GM/DL (6.4-8.2) Albumin 3.0 GM/DL (3.4-5.0) Calcium Level 11.4 MG/DL (8.5-10.1) Alkaline Phosphatase 101 U/L (45-117) Aspartate Amino Transf (AST/SGOT) 1972 U/L (15-37) Alanine Aminotransferase (ALT/SGPT) 1341 U/L (10-53) Total Bilirubin 0.3 MG/DL (0.2-1.0) Sodium Level 144 MEQ/L (136-145) Potassium Level 4.9 MEQ/L (3.5-5.1) Chloride Level 99 MEQ/L (98-107) Carbon Dioxide Level 19.9 MEQ/L (21.0-32.0) Anion Gap 25 MEQ/L (5-15) Estimat Glomerular Filtration Rate 36 ML/MIN (>89) Lactic Acid Level 14.5 mmol/L (0.4-2.0) Ammonia 259 MCMOL/L (11-32) Total Creatine Kinase 174 U/L (26-192) Troponin I 0.07 NG/ML (0.02-0.05) Free Thyroxine 0.71 NG/DL (0.76-1.46) Free Triiodothyronine (T3) pg/dL 3.70 PG/ML (2.18-3.98) Thyroid Stimulating Hormone 3rd Gen 22.900 uIU/ML (0.358-3.740) Salicylates Level 2.0 MG/DL (2.8-20.0) Acetaminophen Level LESS THAN 2.0 MCG/ML Ethyl Alcohol Level 125 MG/DL (0-5) Urine Color YELLOW (YELLW/STRAW) Urine Turbidity CLOUDY (CLEAR) Urine pH 6.0 (5.0-8.5) Urine Specific [place] 1.006 (1.002-1.035) Urine Protein 100 mg/dL (NEG-TRACE) Urine Glucose (UA) 150 mg/dL (NEG) Urine Ketones NEG mg/dL (NEG) Urine Occult Blood MOD (NEG) Urine Nitrite NEG (NEG) Urine Bilirubin NEG (NEG) Urine Urobilinogen LESS THAN 2 mg/dL (LESS Urine Leukocyte Esterase NEG (NEG) Urine RBC 7 /hpf (0-3) Urine WBC 8 /hpf (0-5) Urine Squamous Epithelial Cells <1 /hpf (0-5) Urine Amorphous Sediment MANY Urine Bacteria FEW /hpf (NONE) Urine Hyaline Casts 3 /lpf (RARE) Urine Mucus FEW /lpf (OCC) Microscopic Urinalysis Comment CATH-CULTURE IND Urine Opiates Screen POS (NEG) Urine Barbiturates Screen NEG (NEG) Urine Amphetamines Screen NEG (NEG) Urine Benzodiazepines Screen NEG (NEG) Urine Cocaine Screen NEG (NEG) Urine Cannabinoids Screen NEG (NEG) Test 10/01/17 16:45 10/01/17 17:50 10/01/17 19:17 10/01/17 19:57 Lactic Acid Level 13.4 mmol/L (0.4-2.0) Ammonia 43 MCMOL/L (11-32) Nasal Screen MRSA (PCR) MRSA NOT DETECTED (NOT Blood Gas Puncture Site ART LINE Blood Gas Patient Temperature 98.6 Blood Gas HCO3 18 mmol/L (22-26) Blood Gas Base Excess -5.9 mmol/L (-2-2) Blood Gas Oxygen Saturation 96 % (90-100) Arterial Blood pH 7.43 (7.380-7.420) Arterial Blood Partial Pressure CO2 27 mmHg (38-42) Arterial Blood Partial Pressure O2 100 mmHg (61-120) Arterial Blood Oxygen Content 16.6 Vol % (12.0-20.0) Arterial Blood Carboxyhemoglobin 0.5 % (0-4) Arterial Blood Methemoglobin 1.7 % (0-2) Blood Gas Hemoglobin 12.3 G/DL (12.0-16.0) Oxygen Delivery Device VENTILATOR Blood Gas Ventilator Setting PRVC/AC20/500/5PEEP Blood Gas Inspired Oxygen 40 % Blood Urea Nitrogen 22 MG/DL (7-18) Creatinine 1.50 MG/DL (0.50-1.00) Random Glucose 194 MG/DL (74-106) Total Protein 5.0 GM/DL (6.4-8.2) Calcium Level 7.2 MG/DL (8.5-10.1) Sodium Level 151 MEQ/L (136-145) Potassium Level 3.0 MEQ/L (3.5-5.1) Chloride Level 116 MEQ/L (98-107) Carbon Dioxide Level 17.4 MEQ/L (21.0-32.0) Anion Gap 18 MEQ/L (5-15) Estimat Glomerular Filtration Rate 37 ML/MIN (>89) Protein Corrected Calcium 8.3 MG/DL (8.5-10.1) Troponin I 3.72 NG/ML (0.02-0.05) Test 10/01/17 23:59 10/02/17 01:01 10/02/17 04:17 10/02/17 05:34 White Blood Count 24.4 TH/MM3 (4.0-11.0) 21.7 TH/MM3 (4.0-11.0) Red Blood Count 3.92 MIL/MM3 (4.00-5.30) 3.93 MIL/MM3 (4.00-5.30) Hemoglobin 12.8 GM/DL (11.6-15.3) 12.7 GM/DL (11.6-15.3) Hematocrit 37.1 % (35.0-46.0) 37.5 % (35.0-46.0) Mean Corpuscular Volume 94.6 FL (80.0-100.0) 95.4 FL (80.0-100.0) Mean Corpuscular Hemoglobin 32.5 PG (27.0-34.0) 32.3 PG (27.0-34.0) Mean Corpuscular Hemoglobin Concent 34.4 % (32.0-36.0) 33.9 % (32.0-36.0) Red Cell Distribution Width 12.6 % (11.6-17.2) 12.8 % (11.6-17.2) Platelet Count 146 TH/MM3 (150-450) 141 TH/MM3 (150-450) Mean Platelet Volume 8.6 FL (7.0-11.0) 8.5 FL (7.0-11.0) Prothrombin Time 19.6 SEC (9.8-11.6) Prothromb Time International Ratio 1.9 RATIO Activated Partial Thromboplast Time 30.7 SEC (24.3-30.1) 120.0 SEC (24.3-30.1) Blood Gas Puncture Site ART LINE Blood Gas Patient Temperature 98.6 Blood Gas HCO3 21 mmol/L (22-26) Blood Gas Base Excess -2.4 mmol/L (-2-2) Blood Gas Oxygen Saturation 97 % (90-100) Arterial Blood pH 7.46 (7.380-7.420) Arterial Blood Partial Pressure CO2 30 mmHg (38-42) Arterial Blood Partial Pressure O2 151 mmHg (61-120) Arterial Blood Oxygen Content 17.4 Vol % (12.0-20.0) Arterial Blood Carboxyhemoglobin 0.6 % (0-4) Arterial Blood Methemoglobin 1.6 % (0-2) Blood Gas Hemoglobin 12.6 G/DL (12.0-16.0) Oxygen Delivery Device VENTILATOR Blood Gas Ventilator Setting PRVC/AC20/500/ Blood Gas Inspired Oxygen 40 % CBC Comment AUTO DIFF Differential Total Cells Counted 100 Neutrophils % (Manual) 88 % (16-70) Band Neutrophils % 11 % (0-6) Lymphocytes % 1 % (9-44) Neutrophils # (Manual) 21.5 TH/MM3 (1.8-7.7) Differential Comment FINAL DIFF MANUAL Platelet Estimate LOW (NORMAL) Platelet Morphology Comment NORMAL (NORMAL) Blood Urea Nitrogen 27 MG/DL (7-18) Creatinine 1.60 MG/DL (0.50-1.00) Random Glucose 209 MG/DL (74-106) Total Protein 5.3 GM/DL (6.4-8.2) Albumin 2.7 GM/DL (3.4-5.0) Calcium Level 7.2 MG/DL (8.5-10.1) Phosphorus Level 0.3 MG/DL (2.5-4.9) Magnesium Level 1.5 MG/DL (1.5-2.5) Alkaline Phosphatase 59 U/L (45-117) Aspartate Amino Transf (AST/SGOT) 4093 U/L (15-37) Alanine Aminotransferase (ALT/SGPT) 1547 U/L (10-53) Total Bilirubin 0.5 MG/DL (0.2-1.0) Sodium Level 155 MEQ/L (136-145) Potassium Level 3.4 MEQ/L (3.5-5.1) Chloride Level 120 MEQ/L (98-107) Carbon Dioxide Level 22.2 MEQ/L (21.0-32.0) Anion Gap 13 MEQ/L (5-15) Estimat Glomerular Filtration Rate 34 ML/MIN (>89) Lactic Acid Level 4.2 mmol/L (0.4-2.0) Protein Corrected Calcium 8.2 MG/DL (8.5-10.1) Troponin I 2.36 NG/ML (0.02-0.05) Test 10/02/17 11:08 10/02/17 11:14 10/02/17 14:55 10/03/17 05:34 Blood Gas Puncture Site ART LINE ART LINE Blood Gas Patient Temperature 98.6 98.6 Blood Gas HCO3 25 mmol/L (22-26) 23 mmol/L (22-26) Blood Gas Base Excess 2.4 mmol/L (-2-2) 1.2 mmol/L (-2-2) Blood Gas Oxygen Saturation 96 % (90-100) 94 % (90-100) Arterial Blood pH 7.56 (7.380-7.420) 7.56 (7.380-7.420) Arterial Blood Partial Pressure CO2 28 mmHg (38-42) 26 mmHg (38-42) Arterial Blood Partial Pressure O2 90 mmHg (61-120) 80 mmHg (61-120) Arterial Blood Oxygen Content 17.8 Vol % (12.0-20.0) 16.9 Vol % (12.0-20.0) Arterial Blood Carboxyhemoglobin 0.7 % (0-4) 0.9 % (0-4) Arterial Blood Methemoglobin 1.6 % (0-2) 1.7 % (0-2) Blood Gas Hemoglobin 13.2 G/DL (12.0-16.0) 12.7 G/DL (12.0-16.0) Oxygen Delivery Device VENTILATOR VENTILATOR Blood Gas Ventilator Setting Blood Gas Inspired Oxygen 30 % 30 % Blood Urea Nitrogen 28 MG/DL (7-18) 28 MG/DL (7-18) Creatinine 1.86 MG/DL (0.50-1.00) 2.33 MG/DL (0.50-1.00) Random Glucose 166 MG/DL (74-106) 167 MG/DL (74-106) Total Protein 5.4 GM/DL (6.4-8.2) 5.3 GM/DL (6.4-8.2) Albumin 2.6 GM/DL (3.4-5.0) 2.4 GM/DL (3.4-5.0) Calcium Level 7.5 MG/DL (8.5-10.1) 7.5 MG/DL (8.5-10.1) Phosphorus Level 1.7 MG/DL (2.5-4.9) 4.5 MG/DL (2.5-4.9) Magnesium Level 1.9 MG/DL (1.5-2.5) 1.9 MG/DL (1.5-2.5) Alkaline Phosphatase 64 U/L (45-117) 76 U/L (45-117) Aspartate Amino Transf (AST/SGOT) 2773 U/L (15-37) 1018 U/L (15-37) Alanine Aminotransferase (ALT/SGPT) 1409 U/L (10-53) 1129 U/L (10-53) Total Bilirubin 0.7 MG/DL (0.2-1.0) 0.6 MG/DL (0.2-1.0) Sodium Level 158 MEQ/L (136-145) 165 MEQ/L (136-145) Potassium Level 3.4 MEQ/L (3.5-5.1) 3.4 MEQ/L (3.5-5.1) Chloride Level 123 MEQ/L (98-107) 130 MEQ/L (98-107) Carbon Dioxide Level 24.8 MEQ/L (21.0-32.0) 23.1 MEQ/L (21.0-32.0) Anion Gap 10 MEQ/L (5-15) 12 MEQ/L (5-15) Estimat Glomerular Filtration Rate 29 ML/MIN (>89) 22 ML/MIN (>89) Lactic Acid Level 3.9 mmol/L (0.4-2.0) Test 10/03/17 06:00 Blood Gas Puncture Site ART LINE Blood Gas Patient Temperature 98.6 Blood Gas HCO3 23 mmol/L (22-26) Blood Gas Base Excess -0.7 mmol/L (-2-2) Blood Gas Oxygen Saturation 95 % (90-100) Arterial Blood pH 7.47 (7.380-7.420) Arterial Blood Partial Pressure CO2 32 mmHg (38-42) Arterial Blood Partial Pressure O2 88 mmHg (61-120) Arterial Blood Oxygen Content 15.4 Vol % (12.0-20.0) Arterial Blood Carboxyhemoglobin 0.6 % (0-4) Arterial Blood Methemoglobin 1.7 % (0-2) Blood Gas Hemoglobin 11.5 G/DL (12.0-16.0) Oxygen Delivery Device VENTILATOR Blood Gas Ventilator Setting SEE COMMENTS Blood Gas Inspired Oxygen 30 % Result Diagram: 10/02/17 0417 10/03/17 0534 Microbiology Microbiology Date/Time Source Procedure Growth Status 10/01/17 13:30 Blood Peripheral Aerobic Blood Culture - Preliminary NO GROWTH IN 2 DAYS Resulted 10/01/17 13:30 Blood Peripheral Anaerobic Blood Culture - Preliminary NO GROWTH IN 2 DAYS Resulted 10/01/17 13:25 Blood Peripheral Aerobic Blood Culture - Preliminary NO GROWTH IN 2 DAYS Resulted 10/01/17 13:25 Blood Peripheral Anaerobic Blood Culture - Preliminary NO GROWTH IN 2 DAYS Resulted 10/01/17 16:45 Sputum Endotracheal Gram Stain - Final Complete 10/01/17 16:45 Sputum Culture - Final Klebsiella Pneumoniae Complete 10/01/17 14:20 Urine Catheterized Urine Urine Culture - Final NO GROWTH IN 48 HOURS. Complete Imaging Last Impressions Chest X-Ray 10/03/17 0600 Signed Impressions: CONCLUSION: Minimal atelectasis or consolidation at the medial left base. Head CT 10/01/17 1312 Signed Impressions: CONCLUSION: 1. CT findings most characteristic of diffuse anoxic injury. Findings discusse d with referring physician. Exam is degraded by motion artifact. Cervical Spine CT 10/01/17 0000 Signed Impressions: CONCLUSION: 1. No acute findings. No canal stenosis. CT Angiography 10/01/17 0000 Signed Impressions: CONCLUSION: 1. Negative for pulmonary embolus. 2. Small pericardial effusion. Endotracheal tube and nasogastric tube in good position. Scattered mild groundglass opacity in the lungs. . Procedures * PEA arrest, intubated vas-cath placed. . Patient/Family Conference Present at Family Conference: Palliative care met with patient's son (Guillermo), his girlfriend, patient's significant other (Rich) and brother (Bertram). After lengthy conversation providing medical update, prognosis, questions answered. Family is all in agreement that patient would not want to be kept alive artificially by tubes and machines and have elected to pursue transition to comfort focused care with withdrawal of life support. Family Conference Time (mins): 60 Family Conference Location: Consult Room Issues Discussed: * Palliative care role, purpose, approach * Additional medical, psychosocial, and spiritual history * Patients general health, functional status, and cognitive changes in the months leading up to the current hospitalization * Patient/family understanding of the current medical problems * Patient/family understanding of prognosis * Patients goals of care as best understood from advance directives and/or conversations and/or values * Current medical treatment options and benefits/burdens of those options * Likely scenarios comparing ongoing aggressive care with a transition to comfort measures only * Questions answered to the best of my ability * Palliative care contact information provided Assessment and Plan Disease Oriented Problem List: (1) Cardiac arrest (2) Acidosis (3) Anoxic brain injury (4) Encephalopathy (5) Acute respiratory failure with hypoxia and hypercapnia (6) Aspiration pneumonia (7) Lactic acidosis (8) Liver failure (9) Acute kidney injury (10) NSTEMI (non-ST elevated myocardial infarction) (11) Elevated TSH (12) Hyperammonemia (13) Hypernatremia Symptom Scale: (1) Encephalopathy 0-10 Scale: Unable to quantify (2) Pain 0-10 Scale: Unable to quantify (3) Dyspnea 0-10 Scale: Unable to quantify Pertinent Non-Medical Issues Psychosocial: Lives with significant other, Rich. Has 1 son, Guillermo. Luly Spiritual: [email or web address] . Legal: Patient is not capacitated to make her own healthcare decisions, will not regain capacity. According to [place] statutes, healthcare proxy decision making falls to her only son, Guillermo. Ethical issues impacting care: No known concerns at this time. Important Contacts * Guillermo Stroud, son: [phone] * Rich Lentz, significant other: [phone] . Prognosis Ms. Rueda is a 47-year-old female who suffered PEA arrest, her heart stopped 4 times with 12 minutes of bystander CPR followed by EMS and emergency room CPR. CT head with findings of diffuse anoxic injury. Neurology, netsuite consultant, nephrology and palliative care all agree overall prognosis is poor for meaningful recovery. . Code Status: No Code Plan * Patient is not capacitated to make her own healthcare decisions, will not regain capacity. According to [place] statutes, healthcare proxy decision making falls to her only son, Guillermo. * NO CODE * Palliative care met with patient's son (Guillermo), his girlfriend, patient's significant other (Rich) and brother (Bertram). After lengthy conversation providing medical update, prognosis, questions answered. Family is all in agreement that patient would not want to be kept alive artificially by tubes and machines and have elected to pursue transition to comfort focused care with withdrawal of life support. * Declined hospice services at this time. Will consider hospice in AM if patient survives. * Declined piano accompanist services at this time. * Discussed with Dr. Anders and Dr. Hummel. Exhibits B & C on chart, signed. * Orders written for transition to comfort measures with compassionate withdrawal of life support. * Palliative care number provided. * Palliative care will continue to follow to assist with comfort medications and clarification of medical treatment goals as needed. . Thank you for the opportunity to participate in the care of Ms. Rueda. Attestation To help prompt me to consider important information that might be impacting today's encounter and assessment, information from prior notes written by myself or my colleagues may have been "brought forward" into today's note. My signature on this note, however, is an attestation that I personally performed the exam, history, and/or decision-making noted today, and, unless otherwise indicated, the interactions with patient, family, and staff as well as the review of records all occurred today. I also attest that the listed assessment and stated plan reflect my best clinical judgment today based on the combination of historical information, prior notes, and today's exam/ interactions. When time spent is documented, it refers only to time spent today by the signer, or if indicated, combined time spent today by collaborating physician/nurse practitioner. Karlie Xavier Oct 03, 2017 15:08
[2017-10-03] MEDS ORDERED: HYDROmorphone HCL PF 2 MG/ML VIAL IV PUSH ONE ×2 (15:15→15:45)
[2017-10-03] MEDS ORDERED: LORazepam 2 MG/ML VIAL IV PUSH ONE ×2 (15:15→15:45)
[2017-10-03] MEDS ORDERED: HYOSCYAMINE 0.5 MG/ML AMP IV PUSH ONE (15:15)
[2017-10-03] MEDS ORDERED: HYDROmorphone HCL PF 2 MG/ML VIAL IV PUSH PRN ×2 (15:45)
[2017-10-03] MEDS ORDERED: BISACODYL 10 MG SUPP RECTAL PRN (15:45)
[2017-10-03] MEDS ORDERED: LORazepam 2 MG/ML VIAL IV PUSH PRN ×3 (15:45)
[2017-10-03] MEDS ORDERED: FUROSEMIDE 20 MG/2 ML VIAL IV PUSH PRN (15:45)
[2017-10-03] MEDS ORDERED: ACETAMINOPHEN 650 MG SUPP RECTAL PRN (15:45)
[2017-10-03] MEDS ORDERED: HYOSCYAMINE 0.5 MG/ML AMP IV PUSH PRN (15:45)
--- NOTE | 2017-10-03 15:59 | HHI.NPPN ---
Subjective Additional Remarks Remains intubated, not on sedation. (Antonina Price) Objective Data Data 10/03/17 10/04/17 19:00 07:00 Intake Total 265 ml Balance 265 ml Intake IV Total 265 ml Vital Signs Date Time Temp Pulse Resp B/P (MAP) Pulse Ox O2 Delivery O2 Flow Rate FiO2 10/03/17 15:00 105 10/03/17 14:00 107 10/03/17 13:15 97 30 10/03/17 13:00 109 10/03/17 12:00 109 10/03/17 12:00 98.5 109 14 107/57 (74) 97 119/63 (81) 10/03/17 12:00 30 10/03/17 11:00 112 10/03/17 10:01 96 30 10/03/17 10:00 115 10/03/17 09:00 112 10/03/17 08:33 97 30 10/03/17 08:00 112 10/03/17 08:00 30 10/03/17 08:00 99.2 112 19 86/63 (71) 97 110/60 (77) 10/03/17 06:00 113 10/03/17 04:00 117 10/03/17 04:00 30 10/03/17 04:00 99.3 117 20 86/68 (74) 97 114/64 (81) 10/03/17 03:29 97 30 10/03/17 02:04 117 111/60 10/03/17 02:00 117 10/03/17 01:00 119 103/56 10/03/17 00:50 119 105/57 10/03/17 00:27 99 30 10/03/17 00:00 120 10/03/17 00:00 99.9 120 20 88/56 (67) 96 101/54 (70) 10/03/17 00:00 30 10/02/17 22:00 122 10/02/17 20:00 99.9 120 12 102/52 (69) 96 109/60 (76) 10/02/17 20:00 30 10/02/17 20:00 120 10/02/17 19:55 97 30 10/02/17 19:12 112 113/63 10/02/17 19:00 119 97/54 10/02/17 18:00 117 10/02/17 16:00 120 10/02/17 16:00 30 10/02/17 16:00 99.1 120 24 98/70 (79) 97 102/72 (82) (Antonina Price) -: 10/02/17 0417 10/03/17 0534 Physical Exam General Appearance: Well Developed, Well Nourished (Antonina Price) Throat Throat Exam: Oral Mucosa Verdel & Moist (Antonina Price) Neck Neck Exam: Neck Supple (Antonina Price) Pulmonary Resp Exam: Decreased Bases, Diminished Breath Sounds (Antonina Price) Cardiology CV Exam: Regular, Normal Sinus Rhythm (Antonina Price) Gastrointestinal/Abdomen GI Exam: Soft, Non-Tender, Bowel Sounds Present (Antonina Price) Integumentary Skin Exam: Dry, Intact (Antonina Price) Extremeties Extremities Exam: Trace Edema (Antonina Price) Neurologic Neuro Exam: Comatose (Antonina Price) Assessment/Plan Problem List: (1) Acidosis ICD Codes: E87.2 - Acidosis Plan: Acidosis in the setting of cardiac arrest. Initially consulted for CRRT post resuscitation and significant lactic acidosis. Acidosis has improved, making urine Continues on ventilator and pressor support. Creatinine slightly worsened with hypernatremia Family to transition to comfort care. (2) Cardiac arrest ICD Codes: I46.9 - Cardiac arrest, cause unspecified Status: Acute Plan: Prolonged CPR, with possible anoxic brain injury. apparently absent gag reflexes per nursing - continue to follow goals of care (Antonina Price) Problem List: (1) Acidosis ICD Codes: E87.2 - Acidosis Plan: Acidosis in the setting of cardiac arrest. Initially consulted for CRRT post resuscitation and significant lactic acidosis. Acidosis has improved, making urine Continues on ventilator and pressor support. Creatinine slightly worsened with hypernatremia Family to transition to comfort care. Patient seen and examined, agree with above. Sodium increasing and Creatinine also increasing. Prognosis is guarded. (2) Cardiac arrest ICD Codes: I46.9 - Cardiac arrest, cause unspecified Status: Acute Plan: Prolonged CPR, with possible anoxic brain injury. apparently absent gag reflexes per nursing - continue to follow goals of care (Jono Tamez MD) Antonina Price Oct 03, 2017 15:59 Jono Tamez MD Oct 03, 2017 22:31
[2017-10-03] MEDS ORDERED: LORazepam 2 MG/ML VIAL IV PUSH SCH (16:00)
== END 2017-10-03 17:10 | disposition expired | DRG 917 ==
LOC: NEPE 13:01 → NEDA 14:52 → HIMN 17:40
PROVIDERS: ADMIT Internal Medicine Critical Care Medicine; ATTEND Internal Medicine Critical Care Medicine
PROC: 5A1945Z Respiratory Ventilation, 24-96 Consecutive Hours (ICD-10-PCS; principal; 2017-10-01)
PROC: 5A12012 Performance of Cardiac Output, Single, Manual (ICD-10-PCS; 2017-10-01)
PROC: 02HV33Z Insertion of Infusion Device into Superior Vena Cava, Percutaneous Approach (ICD-10-PCS; 2017-10-01)
PROC: 0BH17EZ Insertion of Endotracheal Airway into Trachea, Via Natural or Artificial Opening (ICD-10-PCS; 2017-10-01)
PROC: 06HM33Z Insertion of Infusion Device into Right Femoral Vein, Percutaneous Approach (ICD-10-PCS; 2017-10-01)
PROC: 04HY33Z Insertion of Infusion Device into Lower Artery, Percutaneous Approach (ICD-10-PCS; 2017-10-01)
DX: T40.601A Poisoning by unspecified narcotics, accidental (unintentional), initial encounter (principal); J96.01 Acute respiratory failure with hypoxia; I46.9 Cardiac arrest, cause unspecified; I21.4 Non-ST elevation (NSTEMI) myocardial infarction; J69.0 Pneumonitis due to inhalation of food and vomit; G93.1 Anoxic brain damage, not elsewhere classified; R57.9 Shock, unspecified; J96.02 Acute respiratory failure with hypercapnia; E72.20 Disorder of urea cycle metabolism, unspecified; N17.9 Acute kidney failure, unspecified; E87.4 Mixed disorder of acid-base balance; K72.90 Hepatic failure, unspecified without coma; E66.9 Obesity, unspecified; Z68.29 Body mass index [BMI] 29.0-29.9, adult; Z98.84 Bariatric surgery status; F10.10 Alcohol abuse, uncomplicated; Y90.6 Blood alcohol level of 120-199 mg/100 ml; Z66 Do not resuscitate; E83.51 Hypocalcemia; E83.42 Hypomagnesemia; E83.39 Other disorders of phosphorus metabolism
CPT/HCPCS: 36556; 36600; 70450; 71045; 71275; 72125; 76937; 80048; 80053; 80307; 81001; 82140; 82550; 82805; 83605; 83735; 84100; 84155; 84439; 84443; 84481; 84484; 85007; 85027; 85610; 85730; 87040; 87070; 87077; 87086; 87186; 87205; 87641; 93005; 93306; 94002; 94003; 94640; 94664; 95819; C9113; J1170; J1644; J1980; J2060; J2543; J3370; J3475; J3480; J7030; J7040; J7050; J7070; J7120; Q9967